=== PATIENT | male | born 1940 | race Caucasian/White ===

== ENCOUNTER 2016-04-29 16:44 | Inpatient (IN) | payer OTHER ==
[2016-04-29] MEDS ORDERED: VANCOMYCIN IV PER PHARMACY MISC SCH (17:45)
[2016-04-29] MEDS: PROTONIX IV SCH (18:07)
[2016-04-29] MEDS: SOLU-MEDROL IV SCH (18:07)
[2016-04-29] MEDS: LEVAQUIN 500 MG/D5W 100 ML IV SCH (18:07)
[2016-04-29] MEDS: SODIUM CHLORIDE 0.9% INJ SCH (18:07)
[2016-04-29] MEDS: LOVENOX SUBQ SCH (18:08)
[2016-04-29 18:15] LABS: ALLEN TEST YES; BE 2.4 mmoll (-3.0-3.0); BLOOD TYPE ARTERIAL; DRAW SITE R RADIAL; METHB 1.2 % (0.0-1.5); O2(CT) 15.2 mL/dL (15.0-23.0); PCO2(98.6) 38 mmHg (35-45); PO2(98.6) 77 mmHg (60-100); SAMPLE BLOOD; SAO2 97.3 % (95.0-100.0); THB 11.3 g/dL (11.5-17.4); pH(98.6) 7.45 (7.35-7.45)
[2016-04-29 18:31] LABS: MANUAL DIFF NEEDED? NO
[2016-04-29 18:39] LABS: BASO% 0.2 % (0.0-0.8); EOS# 0.17 X1000 (0.0-0.7); EOS% 2.1 % (0.0-10.0); HEMATOCRIT 37.4 % (42.0-52.0); HEMOGLOBIN 11.6 g/dL (14.0-18.0); IMM GRAN# 0.02 X1000 (0.0-0.04); IMM GRAN% 0.2 % (0.0-0.5); LYMPH# 2.15 X1000 (1.2-3.4); LYMPH% 26.3 % (20.5-51.1); MCH 26.2 PG (27-31); MCV 84.6 FL (81-99); MONO# 0.65 X1000 (0.11-0.59); MONO% 7.9 % (1.7-9.3); MPV 9.8 FL (7.4-10.4); NEUT% 63.3 % (42.2-75.2); PLT 269 X1000 (130-400); RBC 4.42 XMIL (4.7-6.1)
[2016-04-29 18:59] LABS: AGAP 10; ALBUMIN 3.5 g/dL (3.5-5.0); ALKALINE PHOSPHATASE 73 U/L (32-122); BUN 12 mg/dL (8-22); CALCIUM 9.4 mg/dL (8.8-10.2); CHLORIDE 102 mmol/L (98-107); COSMO 277; GOT 18 U/L (10-34); GPT 27 U/L (10-44); POTASSIUM 4.5 mmol/L (3.5-5.1); SODIUM 139 mmol/L (136-145); TCO2 27 mmol/L (25-35); TOTAL BILIRUBIN 0.32 mg/dL (0.20-1.00); TOTAL PROTEIN 6.5 g/dL (6.3-8.3)
[2016-04-29] MEDS: DUONEB (A & A) INH PRN (19:25)
[2016-04-29] MEDS ORDERED: VANCOMYCIN 2,400 MG in NS 500 ML IV SCH (20:00)
[2016-04-29] MEDS: PRINIVIL PO SCH (20:34)
[2016-04-29] MEDS: VANCOMYCIN 2,400 MG in NS 500 ML IV SCH (20:34)
[2016-04-29] MEDS: HUMULIN R SUBQ SCH (20:35)
--- NOTE | 2016-04-29 21:47 | HISTORY AND PHYSICAL ---
CHIEF COMPLAINT: Shortness of breath, cough, and wheezing for the last 1 week. HISTORY OF PRESENT ILLNESS: He is a 76-year-old pleasant white gentleman with history of pneumoconiosis with asbestosis, recently had a flu and returned to our clinic with the above symptoms. He was markedly wheezing. Chest x-ray consistent with pleural extensive plaquing associated with possible infiltrate in the right lower lobe. He has been hospitalized post flu, COPD exacerbation with possible pneumonia. Needs aggressive bronchodilators, IV antibiotics. As a result, a hospital admission was warranted. PAST MEDICAL HISTORY: CAD. Type 2 diabetes. Hyperlipidemia. Hypertension. Insomnia. Sleep apnea. Peripheral vascular disease. Asbestosis. PAST SURGICAL HISTORY: Cholecystectomy. Bypass surgery. Left femoral angioplasty and endarterectomy. MEDICATIONS: Albuterol, aspirin 325 daily, Flomax 0.4 daily, Prozac 40 daily, gabapentin 300 daily, glipizide 5 mg p.o. b.i.d., metformin 500 p.o. b.i.d., Mirapex 1.5 mg once daily, multivitamin 1 tablet daily, Pletal 100 p.o. b.i.d., Proventil as needed, Zocor 40 daily. ALLERGIES: Not known. SOCIAL HISTORY: , 2 kids. Retired from [employer]. Socially drinks alcohol. Quit smoking in 1988. Lives in [place]. FAMILY HISTORY: Father of MVA at 46. Mom at 86 from diabetic complications. HEALTH MAINTENANCE: Flu vaccine 2015, pneumococcal vaccine 2012. Last prostate February 2016. Colonoscopy 2012. REVIEW OF SYSTEMS: HEENT: No headache. No vision problem. No earache. No sore throat. Neck: No goiter. No lymphadenopathy. No bruits. Cardiopulmonary: No chest pain. Basically shortness of breath, cough, and wheezing. GI: No nausea, vomiting, abdominal pain. : No history of hesitancy, frequency. No swelling of feet. No joint pains. Skin: No skin rashes. Neurologic: No obvious focal symptoms or seizures. PHYSICAL EXAMINATION: VITAL SIGNS: Stable. 97% on room air. HEENT: Atraumatic, normocephalic. Pupils equal, reactive to light. TMs are normal. Nose and throat within normal limits. NECK: Supple. No lymphadenopathy. No goiter. CHEST: Bilateral air entry with expiratory wheezing. HEART: Distant heart sounds. ABDOMEN: Belly is soft, obese, nontender. Good bowel sounds. No peripheral edema, cyanosis, clubbing. No signs of gangrene. NEUROLOGIC: No focal deficits. INVESTIGATIONS: White cell count 8.1, hematocrit 37, platelets 269,000. ABG: PH is 7.45, pCO2 38, PO2 77. SMA7 is normal. LFTs were normal. Cardiac enzymes proBNP were normal. Chest x-ray, possible early infiltrate in the right lower lobe. EKG is pending. ASSESSMENT AND PLAN: 1. A 76-year-old white gentleman with a history of pneumoconiosis with asbestosis, admitted to the hospital with post flu bronchitis, not better. Plan is oxygen, intravenous steroids, intravenous antibiotics with vancomycin and Levaquin. 2. Deep venous thrombosis and gastrointestinal prophylaxis with Lovenox and Protonix respectively. 3. Bronchodilators with albuterol, Atrovent and Spiriva. We will also had a Breo. 4. Reconcile home medicines. 5. Type 2 diabetes. Watch with a sliding scale. 6. Coronary artery disease/peripheral vascular disease. Stable. Continue on secondary prevention. 7. Initiate standing vaccination protocol.
[2016-04-30] MEDS: SOLU-MEDROL IV SCH ×3 (00:58→17:28)
--- NOTE | 2016-04-30 05:28 | EKG Report ---
Test Performed on : 04/29/2016 6:02:10 PM Test Reason : chest pain Blood Pressure : / mmHG Vent. Rate : 080 BPM Atrial Rate : 080 BPM P-R Int : 168 ms QRS Dur : 090 ms QT Int : 404 ms P-R-T Axes : 051 056 074 degrees QTc Int : 465 ms Normal sinus rhythm. Nonspecific ST abnormality Abnormal ECG When compared with ECG of 26-APR-2013 09:57, Nonspecific T wave abnormality no longer evident in Inferior leads Nonspecific T wave abnormality no longer evident in Anterolateral leads Confirmed by Tiffanie ANNE, Julian Marie ([id number]) on 05/01/2016 9:27:26 AM
[2016-04-30] MEDS: HUMULIN R SUBQ SCH ×4 (06:26→21:57)
[2016-04-30 06:59] LABS: HEMOGLOBIN A1C 6.7 % (4.8-6.0)
[2016-04-30] MEDS: SPIRIVA INH SCH (07:53)
[2016-04-30] MEDS: BREO ELLIPTA 100/25 MCG INH INH SCH (07:55)
--- NOTE | 2016-04-30 09:34 | Diag Imaging Result Document ---
PROCEDURE NAME: CHEST-2 VIEWS - 04/30/2016 TWO VIEWS OF THE CHEST: FINDINGS: There is extensive calcific pleural plaque formation bilaterally. There are sternotomy wires. IMPRESSION: Calcified pleural plaques. No definite evidence of acute disease.
[2016-04-30] MEDS: PROZAC PO SCH (10:06)
[2016-04-30] MEDS: FLOMAX PO SCH (10:07)
[2016-04-30] MEDS: MIRAPEX PO SCH (10:07)
[2016-04-30] MEDS: THERA M PLUS PO SCH (10:07)
[2016-04-30] MEDS: PRINIVIL PO SCH ×2 (10:07→21:57)
[2016-04-30] MEDS: ASPIRIN EC PO SCH (10:08)
[2016-04-30] MEDS: GLUCOPHAGE PO SCH (10:08)
[2016-04-30] MEDS: ZOCOR PO SCH (10:08)
[2016-04-30] MEDS: VANCOMYCIN 2,400 MG in NS 500 ML IV SCH (13:34)
[2016-04-30] MEDS: PROTONIX IV SCH (17:25)
[2016-04-30] MEDS: SODIUM CHLORIDE 0.9% INJ SCH (17:25)
[2016-04-30] MEDS: LOVENOX SUBQ SCH (17:26)
[2016-04-30] MEDS: LEVAQUIN 500 MG/D5W 100 ML IV SCH (17:26)
[2016-05-01] MEDS: SOLU-MEDROL IV SCH ×3 (01:21→17:14)
[2016-05-01] MEDS: HUMULIN R SUBQ SCH ×4 (06:48→21:47)
[2016-05-01] MEDS: SPIRIVA INH SCH (07:30)
[2016-05-01] MEDS: BREO ELLIPTA 100/25 MCG INH INH SCH (07:30)
[2016-05-01] MEDS: VANCOMYCIN 2,400 MG in NS 500 ML IV SCH (08:58)
[2016-05-01] MEDS: FLOMAX PO SCH (09:00)
[2016-05-01] MEDS: PROZAC PO SCH (09:00)
[2016-05-01] MEDS: THERA M PLUS PO SCH (09:00)
[2016-05-01] MEDS: ZOCOR PO SCH (09:00)
[2016-05-01] MEDS: PRINIVIL PO SCH ×2 (09:00→21:47)
[2016-05-01] MEDS: ASPIRIN EC PO SCH (09:01)
[2016-05-01] MEDS: MIRAPEX PO SCH (09:01)
[2016-05-01] MEDS: GLUCOPHAGE PO SCH (09:01)
[2016-05-01] MEDS: TESSALON PO PRN ×2 (10:12→21:50)
[2016-05-01] MEDS: DUONEB (A & A) INH PRN ×3 (16:02→23:25)
[2016-05-01] MEDS: LOVENOX SUBQ SCH (17:13)
[2016-05-01] MEDS: PROTONIX IV SCH (17:16)
[2016-05-01] MEDS: SODIUM CHLORIDE 0.9% INJ SCH (17:16)
[2016-05-01] MEDS: LEVAQUIN 500 MG/D5W 100 ML IV SCH (17:19)
[2016-05-02] MEDS: SOLU-MEDROL IV SCH (03:21)
[2016-05-02] MEDS: VANCOMYCIN 2,400 MG in NS 500 ML IV SCH (03:21)
[2016-05-02] MEDS: HUMULIN R SUBQ SCH (06:35)
[2016-05-02 07:36] VITALS: BP 164/90
[2016-05-02] MEDS ORDERED: PREVNAR 13 IM ONE (08:13)
[2016-05-02] MEDS: MIRAPEX PO SCH (09:37)
[2016-05-02] MEDS: PROZAC PO SCH (09:37)
[2016-05-02] MEDS: FLOMAX PO SCH (09:37)
[2016-05-02] MEDS: ZOCOR PO SCH (09:37)
[2016-05-02] MEDS: THERA M PLUS PO SCH (09:37)
[2016-05-02] MEDS: GLUCOPHAGE PO SCH (09:37)
[2016-05-02] MEDS: PRINIVIL PO SCH (09:37)
[2016-05-02] MEDS: ASPIRIN EC PO SCH (09:37)
--- NOTE | 2016-05-04 17:01 | DISCHARGE SUMMARY ---
ADMISSION DATE: 04/29/2016 DISCHARGE DATE: 05/02/2016 DISCHARGING DIAGNOSIS: Acute chronic obstructive pulmonary disease exacerbation with pneumoconiosis of asbestosis. SECONDARY DIAGNOSES: 1. Coronary artery disease status post bypass surgery. 2. Peripheral vascular disease status post left femoral angioplasty and endarterectomy. 3. Type 2 diabetes. 4. Hyperlipidemia. 5. Hypertension. 6. Chronic insomnia. 7. Sleep apnea. 8. History of asbestosis exposure. BRIEF HISTORY: Please see the H and P that was done on 04/29/2016. In brief he is a 76-year-old white gentleman with the above medical problems, recently had influenza A infection, fails to improve, admitted to the hospital with shortness of breath, cough, wheezing, possible bronchopneumonia on the right side with underlying severe pneumoconiosis with asbestosis, pleural plaquing. He was started on IV vancomycin, Levaquin, oxygen, bronchodilators with Breo and Spiriva and steroids. Follow up chest x-ray is improved. Rest of the hospital course was uneventful. LABORATORY DATA: CBC. White cell count 8.1, hematocrit 37, platelets 269,000. ABG on room air pH is 7.45, pCO2 38, PO2 77. SMA 7. Sodium 139, potassium 4.8, chloride 102, CO2 27, BUN 12, creatinine 0.9. A1c 6.7. Liver function test normal. Cardiac enzymes are normal. ProBNP was normal. DISPOSITION: At the time of discharge, patient is stable. DISCHARGE INSTRUCTIONS: Pneumococcal vaccine 05/02/2016. Flomax 0.4 daily, multivitamin 1 tablet daily, Prozac 40 daily, metformin 500 daily, aspirin 325 daily, Zocor 40 mg daily, Prinivil 10 mg p.o. b.i.d., Mirapex 1.5 mg daily, Spiriva inhalation 1 tablet at bedtime, Breo 1 capsule inhalation in the morning, Medrol Dosepak as directed, Levaquin 500 daily for 10 days along with probiotics. Followup in my office next week. Continued to maintain the secondary prevention with existing CAD and peripheral vascular disease.
== END 2016-05-02 09:48 | disposition home or self-care (01) | DRG 192 ==
LOC: DIRADM 16:44 → 4N 16:51
PROVIDERS: ADMIT Internal Medicine; ATTEND Internal Medicine
DX: J44.1 Chronic obstructive pulmonary disease with (acute) exacerbation (principal); E11.51 Type 2 diabetes mellitus with diabetic peripheral angiopathy without gangrene; J92.0 Pleural plaque with presence of asbestos; I25.10 Atherosclerotic heart disease of native coronary artery without angina pectoris; I10 Essential (primary) hypertension; E78.5 Hyperlipidemia, unspecified; F51.04 Psychophysiologic insomnia; Z23 Encounter for immunization; Z79.899 Other long term (current) drug therapy; Z79.82 Long term (current) use of aspirin; Z79.84 Long term (current) use of oral hypoglycemic drugs; Z87.891 Personal history of nicotine dependence; Z95.1 Presence of aortocoronary bypass graft; Z83.3 Family history of diabetes mellitus
CPT/HCPCS: 71020; 80053; 80202; 82550; 82805; 82948; 83036; 83880; 84484; 85025; 90670; 93005; 93010; 94640; 94761; C9113; J1650; J2930; J3370; J7040; S0164

== ENCOUNTER 2018-05-05 08:47 | Inpatient (IN) ==
--- NOTE | 2018-05-05 09:50 | Diag Imaging Result Doc PS360 ---
CHEST-1 VIEW - 05/05/2018 INDICATION: sob COMPARISON: 04/29/2017 FINDINGS: Stable sternotomy changes. Heart size and pulmonary vascularity is normal. Stable extensive, dense bilateral calcified pleural plaques. No infiltrates or edema. No pneumothorax or large pleural effusion. IMPRESSION: No acute disease or change from prior. Electronically signed by Missael Childers 05/05/2018 9:48 AM
[2018-05-05 09:56] LABS: BASO# 0.02 X1000 (0.0-0.2); BASO% 0.1 % (0.0-0.8); EOS# 0.11 X1000 (0.0-0.7); EOS% 0.6 % (0.0-10.0); HEMATOCRIT 41.3 % (42.0-52.0); HEMOGLOBIN 12.9 g/dL (14.0-18.0); IMM GRAN# 0.04 X1000 (0.0-0.04); IMM GRAN% 0.2 % (0.0-0.5); LYMPH# 2.56 X1000 (1.2-3.4); LYMPH% 14.7 % (20.5-51.1); MCH 27.2 PG (27-31); MCHC 31.2 g/dL (33-37); MCV 86.9 FL (81-99); MONO# 1.17 X1000 (0.11-0.59); MONO% 6.7 % (1.7-9.3); NEUT# 13.57 X1000 (1.4-6.5); NEUT% 77.7 % (42.2-75.2); PLT 316 X1000 (130-400); RBC 4.75 XMIL (4.7-6.1); RDW 13.7 % (11.5-14.5); WBC 17.47 X1000 (4.8-10.8)
[2018-05-05] MEDS ORDERED: NS 1,000 ML IV ONE ×2 (10:03→14:45)
[2018-05-05 10:34] LABS: AGAP 13; BUN 21 mg/dL (8-22); CALCIUM 9.1 mg/dL (8.8-10.2); CHLORIDE 97 mmol/L (98-107); COSMO 281; CREATININE 0.9 mg/dL (0.7-1.2); ESTIMATED GFR > 60; GLUCOSE 278 mg/dL (70-104); POTASSIUM 4.5 mmol/L (3.5-5.1); SODIUM 134 mmol/L (136-145); TCO2 24 mmol/L (25-35)
[2018-05-05] MEDS ORDERED: PROTONIX IV ONE (10:39)
[2018-05-05] MEDS ORDERED: ZOFRAN IV ONE (10:39)
[2018-05-05] MEDS ORDERED: PEPCID IV ONE (10:39)
[2018-05-05] MEDS ORDERED: G.I. COCKTAIL PO ONE (10:39)
[2018-05-05] MEDS ORDERED: SODIUM CHLORIDE 0.9% INJ ONE ×2 (10:40)
[2018-05-05 11:04] LABS: URINE SOURCE CLEAN CATCH
[2018-05-05 11:08] LABS: BILIRUBIN URINE NEGATIVE (NEGATIVE); BLOOD URINE NEGATIVE (NEGATIVE); COLOR YELLOW; GLUCOSE URINE 1000 mg/dL (NEGATIVE); KETONE URINE TRACE mg/dL (NEGATIVE); LEUKOCYTES URINE NEGATIVE (NEGATIVE); NITRITE URINE NEGATIVE (NEGATIVE); PROTEIN URINE TRACE mg/dL (NEGATIVE); SP GRAVITY URINE 1.022; TURBIDITY URINE CLEAR (CLEAR); UR EPITHELIAL CELLS <10 /HPF (<10); URINE BACTERIA NEGATIVE /HPF; URINE RBC <10 /HPF (<10); URINE WBC <10 /HPF (<10); UROBILINOGEN URINE NORMAL (NORMAL)
--- NOTE | 2018-05-05 11:34 | EKG Report ---
Test Performed on : 05/05/2018 10:03:56 AM Test Reason : ED. NO EKG ORDER FOR MUSE Blood Pressure : / mmHG Vent. Rate : 096 BPM Atrial Rate : 096 BPM P-R Int : 168 ms QRS Dur : 090 ms QT Int : 362 ms P-R-T Axes : 036 023 051 degrees QTc Int : 457 ms Normal sinus rhythm. Nonspecific ST abnormality Abnormal ECG When compared with ECG of 07-APR-2017 04:00, No significant change was found Unconfirmed Result
--- NOTE | 2018-05-05 12:48 | Diag Imaging Result Doc PS360 ---
EXAM: CT ABD/PELVIS W/PO AND IV CON 05/05/2018 HISTORY: UPPER ABD PAIN AND TENDERNESS TECHNIQUE: This exam was performed using automated exposure control, adjustment of mA or kV according to patient size, and/or use of iterative reconstruction technique. COMMENT: There is marked bilateral calcific pleural plaquing. This was also present at the time the previous examination of 04/07/2018. It may be related to asbestos exposure. The spleen adrenal glands liver and pancreas are stable in appearance. There has been cholecystectomy. There is no evidence of nephrolithiasis on the right. There is a stone in the mid collecting system on the left measuring 5 mm in diameter. This was also present previously. There are multiple cortical cysts. There is no evidence of bowel obstruction. There is dense calcification of the aorta as well as portions of the celiac and superior mesenteric arteries. There is no evidence of abdominal aortic aneurysm. There is no significant adenopathy. Pelvis: There is marked diverticulosis of the sigmoid colon and distal descending colon without evidence of diverticulitis. The appendix is normal in appearance. There is no evidence of free fluid. The urinary bladder is unremarkable. There is no evidence of adenopathy. There is a bone island in the left femoral head. There are degenerative disc changes in the lumbar spine. IMPRESSION: 1. Calcific pleural plaquing. 2. Diverticulosis coli. Electronically signed by Maninder Hinson 05/05/2018 12:45 PM
--- NOTE | 2018-05-05 13:48 | PROVIDER DOCUMENTATION ---
This chart was entered by Esmer Matta Scribe, acting as scribe for Hawk Farfan MD. HPI-General Adult - General Chief Complaint: High Blood Sugar Stated Complaint: BS HIGH Time Seen by Provider: 05/05/18 10:02 Source: patient Allergies/Adverse Reactions: Patient Allergies Allergy/AdvReac Type Severity Reaction Status Date / Time No Known Allergies Allergy Verified 04/26/13 10:15 Home Medications: Home Medication List Medication Instructions Recorded Confirmed Last Taken Type Aspirin EC 325 mg PO DAILY 04/26/13 04/06/17 04/29/16 14:00 History Fluoxetine HCl 40 mg PO DAILY 04/26/13 04/06/17 04/29/16 14:00 History LISINOpril [Prinivil] 10 mg PO BID 04/26/13 04/06/17 04/29/16 14:00 History Metformin HCl 500 mg PO BID 04/26/13 04/06/17 04/29/16 14:00 History Multivitamin [Multivitamins] 1 each PO DAILY 04/26/13 04/06/17 04/29/16 14:00 History SIMVAstatin [Zocor] 40 mg PO DAILY 04/26/13 04/06/17 04/29/16 14:00 History Tamsulosin [Flomax] 0.4 mg PO DAILY 04/26/13 04/06/17 04/29/16 14:00 History Fluticasone/Vilant 100/25 INH 1 puff INH RTDAILY #3 inhaler 05/02/16 Unknown Rx [Breo Ellipta 100/25 Mcg INH] Tiotropium [place] Inhaler 1 puff INH RTDAILY #3 inhaler 05/02/16 Unknown Rx [Spiriva] Cilostazol 100 mg PO BID 04/06/17 04/06/17 Unknown History Gabapentin 300 mg PO BID 04/06/17 04/06/17 Unknown History Glipizide 5 mg PO BID 04/06/17 04/06/17 Unknown History Omeprazole 40 mg PO DAILY 04/06/17 04/06/17 Unknown History Pramipexole Di-HCl [Pramipexole 1.5 mg PO DAILY 04/06/17 04/06/17 Unknown History Dihydrochloride] Iron Carbonyl/Vit C/Vit B12/FA 1 ea PO DAILY #30 tab 04/10/17 Unknown Rx [Icar-C Plus] - History of Present Illness -Gen Adult Nature of Presenting Problems: 78 y/o male presents to ED with hyperglycemia and upper midline abdominal pain radiating to back onset 2 weeks ago. Pt reports his FSBS was >300 this morning. Pt states he was seen for same recently at [facility] and they increased his metformin. Pt reports he has also experienced dark diarrhea for the past 2 days. Pt is alert and oriented. Location of Pain/Injury: reports: abdomen Pain Radiation: reports: no radiation Quality of Pain: reports: aching Severity: reports: mild Onset/Duration: reports: other (2 weeks ago) Timing: reports: still present Context/Activities at Onset: reports: none Modifying Factors: worse with: palpation Associated Symptoms: reports: back/neck pain (back), diarrhea (dark), other (hyperglycemia; upper midline abdominal pain) Similar Symptoms Previously?: No Recently seen or treated by another doctor?: Yes ([facility] for same sx) - Diabetes Related Context Context: reports: high blood sugar Review of Systems - Adult - REVIEW OF SYSTEMS - ADULT Constitutional: reports: other (hyperglycemia). denies: chills, fever Eyes: reports: no symptoms reported Ears, Nose, Mouth & Throat: reports: no symptoms reported Cardiovascular: denies: chest pain, palpitations Respiratory: denies: cough, shortness of breath Gastrointestinal: reports: abdominal pain (upper midline), diarrhea (dark). denies: nausea, vomiting Genitourinary: reports: no symptoms reported Musculoskeletal: reports: back pain. denies: joint pain Integumentary: reports: no symptoms reported Neurological: denies: dizziness/vertigo, seizure Psychiatric: reports: no symptoms reported Endocrine: reports: other (hyperglycemia). denies: goiter Hematologic/Lymphatic: reports: no symptoms reported Allergic/Immunologic: reports: no symptoms reported All Other Systems: Reviewed and Negative Past History - Adult - PAST MEDICAL HISTORY-ADULT Review of Records: reports: Old Records Reviewed, Nursing Assessment Review, Medications Reviewed Major Childhood Illnesses: reports: denies history Cardiovascular: reports: CAD, HTN Respiratory: reports: denies history, COPD, other (asbestosis) Gastrointestinal: reports: denies history Genitourinary: reports: other (BPH) Musculoskeletal: reports: denies history, other (neuropathy) Neurological: reports: denies history, other (RLS) Psychiatric: reports: denies history Endocrine/Immune: reports: Diabetes - PRIOR SURGERIES/PROCEDURES Surgical/Procedure History: reports: cholecystectomy, other (cardiac bypass; L leg artery) - IMMUNIZATION STATUS Childhood Immunizations: See Nurse Assessment Flu Vaccine: See Nurse Assessment - FAMILY HISTORY Family History: reviewed, not pertinent - SOCIAL HISTORY Smoking: non-smoker Substance Use: none/never Alcohol Use Frequency: rarely Living Situation: family Physical Exam-General - PHYSICAL EXAM-ADULT Initial Vital Signs Reviewed: Yes - CONSTITUTIONAL General Appearance: appears well, alert, no apparent distress - EYES Eyes: PERRL/EOMI, pink conjunctivae - HEAD, EARS, NOSE, MOUTH & THROAT HENMT: normocephalic/atraumatic, moist mucous membranes, normal ENT inspection - NECK Neck: non-tender, full range of motion - RESPIRATORY Respiratory: chest non-tender, lungs clear, normal breath sounds - CARDIOVASCULAR Cardiovascular: normal peripheral pulses, regular rate, rhythm - GASTROINTESTINAL (ABDOMEN) Abdominal Exam: normal bowel sounds, soft, tenderness (upper midline), other ( rectus diastasis). negative: hernia, mass - GENITOURINARY Rectal Exam: normal exam, normal rectal tone Hemoccult Exam: heme negative stool - MUSCULOSKELETAL Back Exam: normal inspection, no CVA tenderness Extremity: normal range of motion, non-tender, normal gait - SKIN Integumentary: normal color, warm/dry - NEUROLOGIC Neurologic: grossly normal - PSYCHIATRIC Psych/Mental Status: normal mood/affect, normal thought content, normal thought process Progress - PLAN OF CARE/RESULTS Progress/Plan/Lab Results: Vital Signs - 8 hr 05/05/18 09:03 Temperature 97.6 F Pulse Rate 101 H Respiratory Rate 20 Blood Pressure 136/81 O2 Sat by Pulse Oximetry 95 Laboratory Results - last 24 hr 05/05/18 05/05/18 09:08 09:40 WBC 17.47 H RBC 4.75 Hgb 12.9 L Hct 41.3 L MCV 86.9 MCH 27.2 MCHC 31.2 L RDW Std Deviation 13.7 Plt Count 316 MPV 10.0 Immature Gran % (Auto) 0.2 Neut % (Auto) 77.7 H Lymph % (Auto) 14.7 L [place] % (Auto) 6.7 Eos % (Auto) 0.6 Baso % (Auto) 0.1 Immature Gran # (Auto) 0.04 Neut # (Auto) 13.57 H Lymph # (Auto) 2.56 [place] # (Auto) 1.17 H Eos # (Auto) 0.11 Baso # (Auto) 0.02 POC Glucose 309 H Orders Category Date Time Status Finger Stick Blood Sugar (ED) DIRECTED Care 05/05/18 10:03 Active CHEST-1 VIEW [RAD] Stat Exams 05/05/18 09:23 Completed CBC WITH DIFF [HEME] Stat Lab 05/05/18 09:40 Completed Chem7 [BASIC METABOLIC PANEL] [CHEM] Stat Lab 05/05/18 09:40 Received 0.9% Sodium Chloride Inj [Ns] 1,000 ml Med 05/05/18 10:03 Active IV 999 mls/hr Laboratory Tests 05/05/18 05/05/18 05/05/18 09:08 09:40 09:40 WBC 17.47 H RBC 4.75 Hgb 12.9 L Hct 41.3 L MCV 86.9 MCH 27.2 MCHC 31.2 L RDW Std Deviation 13.7 Plt Count 316 MPV 10.0 Immature Gran % (Auto) 0.2 Neut % (Auto) 77.7 H Lymph % (Auto) 14.7 L [place] % (Auto) 6.7 Eos % (Auto) 0.6 Baso % (Auto) 0.1 Immature Gran # (Auto) 0.04 Neut # (Auto) 13.57 H Lymph # (Auto) 2.56 [place] # (Auto) 1.17 H Eos # (Auto) 0.11 Baso # (Auto) 0.02 Sodium 134 L Potassium 4.5 Chloride 97 L Carbon Dioxide 24 L Anion Gap 13 BUN 21 Creatinine 0.9 Estimated GFR/1.73 m2 > 60 BUN/Creatinine Ratio 23 Glucose 278 H POC Glucose 309 H Calculated Osmolality 281 Calcium 9.1 Urine Source Urine Color Urine Turbidity Urine pH Ur Specific [place] Urine Protein Ur Glucose (Stick) Ur Ketones (Stick) Urine Blood Urine Nitrite Urine Bilirubin Urobilinogen Dipstick Urine Leukocytes Urine WBC (Auto) Urine RBC (Auto) U Epithel Cells (Auto) Urine Bacteria (Auto) 05/05/18 05/05/18 10:38 11:00 WBC RBC Hgb Hct MCV MCH MCHC RDW Std Deviation Plt Count MPV Immature Gran % (Auto) Neut % (Auto) Lymph % (Auto) [place] % (Auto) Eos % (Auto) Baso % (Auto) Immature Gran # (Auto) Neut # (Auto) Lymph # (Auto) [place] # (Auto) Eos # (Auto) Baso # (Auto) Sodium Potassium Chloride Carbon Dioxide Anion Gap BUN Creatinine Estimated GFR/1.73 m2 BUN/Creatinine Ratio Glucose POC Glucose 238 H Calculated Osmolality Calcium Urine Source CLEAN CATCH Urine Color YELLOW Urine Turbidity CLEAR Urine pH 6.0 Ur Specific [place] 1.022 Urine Protein TRACE A Ur Glucose (Stick) 1000 A Ur Ketones (Stick) TRACE A Urine Blood NEGATIVE Urine Nitrite NEGATIVE Urine Bilirubin NEGATIVE Urobilinogen Dipstick NORMAL Urine Leukocytes NEGATIVE Urine WBC (Auto) <10 Urine RBC (Auto) <10 U Epithel Cells (Auto) <10 Urine Bacteria (Auto) NEGATIVE Stool Occult Blood is negative. Influenza A and B are negative. Result Diagrams: 05/05/18 09:40 05/05/18 09:40 - REASSESSMENT Reassessment #1 Time Reassessed: 13:24 Status: improving (UPPER ABD PAIN IS MUCH BETTER, BUT, PT STILL FEELS VERY WEAK . PAGING DR BERMAN.) - EKG 1 Time of EKG reading by physician:: 10:03 EKG Read and Signed by:: Hawk Farfan EKG Interpretation (*Must complete 3 of following elements*): Abnormal Rate: 96 Rhythm: NSR [place]: normal QRS: normal OR Interval: normal ST Wave: non-specific ST changes - XRAY 1 XRAY Study: Chest Impression: Normal (FINDINGS: Stable sternotomy changes. Heart size and pulmonary vascularity is normal. Stable extensive, dense bilateral calcified pleural plaques. No infiltrates or edema. No pneumothorax or large pleural effusion. IMPRESSION: No acute disease or change from prior. Electronically signed by Missael Childers 05/05/2018 9:48 AM) - CT/MRI 1 CT Study: Abdomen, Pelvis Impression: Abnormal (COMMENT: There is marked bilateral calcific pleural plaquing. This was also present at the time the previous examination of 04/07/2018. It may be related to asbestos exposure. The spleen adrenal glands liver and pancreas are stable in appearance. There has been cholecystectomy. There is no evidence of nephrolithiasis on the right. There is a stone in the mid collecting system on the left measuring 5 mm in diameter. This was also present previously. There are multiple cortical cysts. There is no evidence of bowel obstruction. There is dense calcification of the aorta as well as portions of the celiac and superior mesenteric arteries. There is no evidence of abdominal aortic aneurysm. There is no significant adenopathy. Pelvis: There is marked diverticulosis of the sigmoid colon and distal descending colon without evidence of diverticulitis. The appendix is normal in appearance. There is no evidence of free fluid. The urinary bladder is unremarkable. There is no evidence of adenopathy. There is a bone island in the left femoral head. There are degenerative disc changes in the lumbar spine. IMPRESSION: 1. Calcific pleural plaquing. 2. Diverticulosis coli. Electronically signed by Maninder bee 05/05/2018 12:45 PM) - CONSULTS/PCP/HOSPITALIST Notification #1 *Consult/PCP/Hospitalist*: EUFEMIA Sharma for Dr. Hatch Time Discussed: 11:21 Reason/Comments: suspected GI bleed Consult Disposition: Admit (will see on floor if admitted) #2 Consult: DR Viraj BERMAN Time Discussed: 13:46 Consult Disposition: Admit Departure - Departure Date of Disposition Decision: 05/05/18 Time of Disposition Decision: 13:46 DIAGNOSIS: Epigastric abdominal pain, Peptic ulcer disease, Chest pain, Leukocytosis, Weakness Disposition: ADMITTED INPATIENT 09 Certified Medical Emergency: Emergent Condition: Stable Referrals and Follow-Ups: Viraj Berman MD [Primary Care Provider] - - Critical Care Note This patient required my direct & personal management of CC.: No Attestation - Physician/ BEAN Attestation Patient care was provided by Advanced Practice Provider:: No The physician spent face to face time with patient:: Yes Advanced Practice Provider documentation review:: Supervising physician onsite and consulted in the evaluation and care of this patient. The physician did have a face to face encounter with the patient. This chart was documented by the indicated scribe, (Esmer Matta Scribe) and accurately reflects the services I performed and decisions made by me, Hawk Farfan MD, as attested by the provider's signature.
[2018-05-05] MEDS: PROTONIX 80 MG in NS 80 ML IV SCH (16:46)
--- NOTE | 2018-05-05 22:18 | HISTORY AND PHYSICAL ---
CHIEF COMPLAINT: Severe abdominal pain off and on for the last 2 times in 1 month. HISTORY OF PRESENT ILLNESS: He is a 78-year-old white male with known history of peripheral vascular disease, and basically presented with recurrent upper abdominal pain. Not associated with meals. He denies any bleeding per stool. He has had gallbladder taken out. Basically rule out peptic ulcer disease versus mesenteric ischemia. No blood in the stool. The patient was seen twice for the same reason. The patient was admitted to the hospital for further evaluation. Exam was benign. Workup was essentially stable in the emergency room. Basically follow up, and also initiate GI consult. PAST MEDICAL HISTORY: Coronary artery disease; type 2 diabetes; hyperlipidemia; hypertension; sleep apnea; asbestosis of lungs; peripheral vascular disease; left leg claudication, status post angioplasty in 2013. PAST SURGICAL HISTORY: Cholecystectomy, bypass surgery, left femoral angioplasty. MEDICATIONS: Ambien 10 mg daily; aspirin 325 daily; budesonide inhalation b.i.d.; Flomax 0.4 daily; fluoxetine 40 daily; gabapentin 300 p.o. b.i.d.; glipizide 5 mg p.o. b.i.d.; lisinopril 10 mg twice daily; metformin 500 p.o. b.i.d.; Mirapex 1.5 daily; Proventil as needed; Zocor 40 daily. ALLERGIES: Not known. SOCIAL HISTORY: , 2 children. Retired from [employer]. . Smoking until 1988. Occasionally drinks alcohol. Lives in [place]. FAMILY HISTORY: Father at the age of 46 from MVA. Mother of diabetic complications at 86. HEALTH MAINTENANCE: Flu vaccine 11/2017, pneumococcal 04/2016. Last physical exam 03/25/2018. Colonoscopy 03/[address] Baca with tubular adenoma. Carotid Doppler 09/26/2016. REVIEW OF SYSTEMS: HEENT: No headache, no vision problem. No earache. No sore throat. Neck: No goiter. No lymphadenopathy. bruits noted last carotid Doppler 01/19/2018. Cardiopulmonary: No chest pain, shortness of breath, PND or orthopnea. Gastrointestinal: Upper abdominal pain, severe, localized. Not associated with any meals. No altered bowel habits. No bleeding per rectum. Occasional diarrhea. Genitourinary: No history of hesitancy, frequency or dysuria. Musculoskeletal: No claudication symptoms. Psychiatric: Chronic insomnia. Neurologic: No neurological symptoms like dizziness, vertigo or seizures. PHYSICAL EXAMINATION: VITAL SIGNS: Temperature is 97 degrees, pulse is 95, blood pressure is stable. GENERAL: Six feet 2 inches, 265 pounds. HEENT: Atraumatic, normocephalic. Pupils equal and reactive to light. TMs are normal. Nose and throat within normal limits. NECK: Supple. No lymphadenopathy. Bilateral carotid bruits. CHEST: Bilateral air entry. No wheezing. HEART: Sounds are regular. ABDOMEN: Belly is soft, obese, nontender. Good bowel sounds. No signs of peritonitis. RECTAL: Deferred. EXTREMITIES: Decreased pulses in both feet. No signs of gangrene. NEUROLOGIC: No deficits. LABORATORY DATA: White cell count 17, hematocrit 41, platelets 316,000. SMA 7: Sodium 134, potassium 4.5, chloride 97, BUN 21, creatinine 0.9, glucose 278. Cardiac enzymes are normal. Urinalysis is clear. DIAGNOSTIC DATA: CT scan of the abdomen and pelvis: Calcified pleural plaquing; diverticulosis coli; there is a stone in the left kidney 5 mm in diameter; multiple cysts; there is a dense calcification of the aorta as well as celiac and superior mesenteric arteries; no evidence of abdominal aortic aneurysm; diverticulosis of sigmoid colon; there is a bone island in the femoral head; degenerative changes in the lumbar spine. EKG: Normal sinus. Nothing acute. ASSESSMENT AND PLAN: 1. A 78-year-old white gentleman admitted to the hospital with recurrent epigastric pain, etiology to be determined. Rule out peptic ulcer disease. Continue intravenous Protonix. Esophagogastroduodenoscopy, consider. 2. Status post cholecystectomy. 3. Rule out mesenteric ischemia. We will get CT abdominal angiography. Consult with Dr. Phuong haq. 4. Asbestosis of the lungs, stable. 5. Bilateral carotid disease, 40% to 60%. Continue aspirin. 6. Peripheral arterial disease, status post left femoral angioplasty and atherectomy by Dr. Garcia. 7. Benign prostatic hypertrophy, on Flomax. 8. Depression, on Prozac 40 daily. 9. Hypertension, on lisinopril 10 daily. 10. Type 2 diabetes. Metformin 500 p.o. b.i.d. 11. Restless legs syndrome. Mirapex 1.5 daily. 12. Chronic neuropathy. Neurontin 300 daily. 13. Sleep apnea, on oxygen at nighttime. We will follow up. cc: Rick Burris MD [facility] CENTERMeri
[2018-05-05] MEDS: ZOCOR PO SCH (23:45)
[2018-05-05] MEDS: PRINIVIL PO SCH (23:45)
[2018-05-05] MEDS: NEURONTIN PO SCH (23:45)
[2018-05-06] MEDS: PROTONIX 80 MG in NS 80 ML IV SCH ×3 (01:48→20:48)
[2018-05-06 05:12] LABS: HEMATOCRIT 43.7 % (42.0-52.0); HEMOGLOBIN 13.7 g/dL (14.0-18.0); MCHC 31.4 g/dL (33-37); MCV 86.2 FL (81-99); MPV 10.1 FL (7.4-10.4); RBC 5.07 XMIL (4.7-6.1); WBC 15.48 X1000 (4.8-10.8)
[2018-05-06 05:33] LABS: AGAP 12; ALB/GLOB RATIO 1.5; ALBUMIN 4.1 g/dL (3.5-5.0); ALKALINE PHOSPHATASE 111 U/L (32-122); AMYLASE 33 U/L (20-200); BUN 15 mg/dL (8-22); CALCIUM 9.2 mg/dL (8.8-10.2); CHLORIDE 99 mmol/L (98-107); COSMO 274; ESTIMATED GFR > 60; GLUCOSE 186 mg/dL (70-104); GOT 15 U/L (10-34); GPT 24 U/L (10-44); POTASSIUM 4.8 mmol/L (3.5-5.1); SODIUM 134 mmol/L (136-145); TCO2 23 mmol/L (25-35); TOTAL PROTEIN 6.8 g/dL (6.3-8.3)
[2018-05-06 05:51] LABS: ALLEN TEST YES; BLOOD TYPE ARTERIAL; HCO3-(ACT) 23.3 mmoll (20.0-26.0); METHB 0.8 % (0.0-1.5); O2(CT) 18.5 mL/dL (15.0-23.0); O2HB 96.5 % (95.0-99.0); PCO2(98.6) 36 mmHg (35-45); PO2(98.6) 125 mmHg (60-100); SAMPLE BLOOD; SAO2 98.5 % (95.0-100.0); THB 13.5 g/dL (11.5-17.4)
[2018-05-06 05:52] LABS: MODALITY CANNULA
[2018-05-06] MEDS: SPIRIVA INH SCH (07:58)
[2018-05-06] MEDS: PULMICORT FLEXHALER INH SCH ×3 (08:00→19:18)
[2018-05-06] MEDS ORDERED: GLUCOPHAGE PO SCH (09:00)
--- NOTE | 2018-05-06 10:02 | Diag Imaging Result Doc PS360 ---
CT ANGIOGRAM ABD/PELIVS W/CON - 05/06/2018 INDICATION: Abdominal pain TECHNIQUE: Axial CT images were obtained after administering intravenous contrast. Coronal MIP images were generated. COMPARISON: 05/05/2018 FINDINGS: There are dense pleural plaques bilaterally in the lung bases compatible with extensive old asbestos exposure. No infiltrates or masses. Heart size is normal with no pericardial effusion. There is severe vascular disease of the abdominal aorta without significant aneurysm. There is critical stenosis at the origin of the celiac and superior mesenteric arteries with over 90% stenosis. The renal artery origins are grossly patent. The inferior mesenteric artery origin is diseased but patent. There is severe to critical stenosis of the right common iliac artery with about 80% narrowing. There is moderate stenosis throughout the right external iliac artery with about 50% narrowing. There is critical stenosis of the right internal iliac artery with about 90% narrowing. There is critical stenosis of the right common iliac artery with 90% narrowing. There is moderate stenosis of the left common iliac artery with about 40% narrowing. The left external iliac artery is grossly patent. There is critical stenosis at the origin of the left internal iliac artery with about 90% stenosis. There is vascular disease of the left femoral vessels but no significant stenosis. 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 Critical stenosis of the pelvic and femoral arteries. This exam was performed using automated exposure control, adjustment of mA or kV according to patient size, and/or use of iterative reconstruction technique Electronically signed by Missael Childers 05/06/2018 10:00 AM
[2018-05-06] MEDS: MIRAPEX PO SCH (10:04)
[2018-05-06] MEDS: PRINIVIL PO SCH ×2 (10:05→20:48)
[2018-05-06] MEDS: NEURONTIN PO SCH ×2 (10:05→20:48)
[2018-05-06] MEDS: PROZAC PO SCH (10:05)
[2018-05-06] MEDS: FLOMAX PO SCH (10:06)
[2018-05-06] MEDS: ASPIRIN EC PO SCH (10:06)
[2018-05-06] MEDS: GLUCOTROL PO SCH ×2 (10:06→20:48)
[2018-05-06] MEDS: ZOFRAN IV PRN (11:08)
[2018-05-06] MEDS: HUMALOG SUBQ SCH ×3 (11:09→20:49)
[2018-05-06] MEDS ORDERED: MIRALAX PO SCH (11:15)
--- NOTE | 2018-05-06 11:44 | GASTROENTEROLOGY PROGRESS NOTE ---
DATE: 05/06/2018 DICTATING PHYSICIAN: Dr. Burris. REASON FOR CONSULTATION: Abdominal pain and dark stools. HISTORY: Mr. Mederos is a 78-year-old male, who was admitted on 05/05/2018 for epigastric pain along with dark stools. According to the patient, this has been happening for the last 1 month; it has gotten worse now, and he cannot even sit still in the bed. The patient is also passing dark stools. He denies any bright red blood in the stools. He has been on aspirin for years for coronary disease. He denies any nausea, vomiting, or vomiting blood. Gastroenterology is asked to follow for further management. PAST MEDICAL HISTORY: 1. Coronary artery disease. 2. Type 2 diabetes. 3. Hyperlipidemia. 4. Obesity. 5. Hypertension. 6. Sleep apnea. 7. Asbestos of the lungs. 8. Peripheral vascular disease. 9. Left leg claudication. PAST SURGICAL HISTORY: Status post angioplasty 2013, cholecystectomy, coronary artery bypass surgery, left femoral angioplasty. ALLERGIES: No known drug allergies. SOCIAL HISTORY: He is . He has 2 children. Retired from [employer]. He is a . He smoked until 1988. He occasionally drinks alcohol. Lives in [place]. FAMILY HISTORY: Father at age 46 from MVA; mother of diabetic complications at age 86. Denies any history of colon or stomach cancer in the family. MEDICATIONS IN THE HOSPITAL: Zocor, aspirin 325 every day, budesonide inhaler, Prozac, gabapentin, glipizide, lisinopril, metformin, Zofran, Pantoprazole, Protonix drip at 10 mL/hour, Flomax, tiotropium 1 puff inhaled daily, and he is currently on clear liquid diet. REVIEW OF SYSTEMS: Denies any current fevers, rigors, chills, chest pain, shortness of breath, dyspnea, anxiety, vomiting blood. Does complain of dark stools. Complained of abdominal pain in the epigastric region radiating to right and left upper quadrant. His last colonoscopy was done on 04/09/2017 by me, and we removed the polyp in the hepatic flexure, which is tubular. He had stool throughout the colon. He also had diverticulosis in the descending and sigmoid colon. His last EGD was done on 04/08/2017 which showed Schatzki ring, and gastritis and gastric biopsy during that time showed H pylori negative chronic inactive gastritis. He denies any neurologic complaints. Denies history of arthritis of other NSAIDs other than aspirin. PHYSICAL EXAMINATION: Vital Signs: Temperature 98.1, pulse of 96, respiratory rate of 18, blood pressure of 143/80, satting 97% on 2 L nasal cannula. Body weight of 265 pounds 3.2 ounces. BMI 34 kg/m2. General: He is obese, lying in bed in no acute distress. HEENT: Positive pallor, no icterus. Pupils equal, reactive to light. Neck: Supple. Abdomen: Protuberant, obese. Discomfort in the epigastrium region and in the left upper quadrant and in the right upper quadrant. No rebound or guarding. Extremities: No cyanosis, clubbing. Neuro: Alert, awake and oriented x3. LABS: Hemoglobin and hematocrit is 13.7 and 43.7, white count of 15.4, platelet count of 320, MCV of 86.2. A pH of 7.4, pCO2 of 36, PO2 125; this is on 28% FiO2. Lactate of 1.5. Sodium of 130, potassium 4.2, chloride 99, bicarbonate 23, anion gap 12. BUN of 15, creatinine 1, glucose of 186, calcium 9.2. Total bilirubin is 0.7, AST 15, ALT 24, alkaline phosphatase 111. Total protein 6.8, albumin of 4.1. Amylase of 33, lactate of 1.6. Urinalysis showing trace protein, trace glucose and trace ketones. The stool for occult blood was negative and flu screen was also negative for A and B. X-RAYS: CT of the abdomen and pelvis was showing critical stenosis at the origin of superior mesenteric artery and celiac artery, critical stenosis of the pelvic and femoral arteries consistent with reflux disease. IMPRESSION AND PLAN: 1. Epigastric pain. 2. Peripheral vascular disease. 3. Computed tomography angiography showing critical stenosis of the SMA which could explain some of his symptoms. 4. Normal lactate per arterial blood gas. 5. Leukocytosis. 6. History of colon polyps. 7. History of diverticulosis. 8. History of reflux disease. RECOMMENDATIONS: We will start him on Carafate 1 g every 6 hours. He will continue Protonix drip. We will start him on clear liquid diet. We will call General Surgery consult for critical stenosis SMA. We will do serial abdominal exams. We will schedule him for EGD tomorrow by Dr. Pizano. The risks, benefits, indications, and alternatives to the procedure were discussed with the patient and family and all questions answered. We will start him on bowel regimen with MiraLAX. Above plan discussed with the patient and the family at bedside. All questions were answered. Please call us with any further questions. cc: MD Rick Brooks MD
[2018-05-06] MEDS: CARAFATE LIQUID PO SCH ×3 (14:47→20:48)
[2018-05-06] MEDS: GLUCOPHAGE PO SCH (17:10)
--- NOTE | 2018-05-06 19:00 | GENERAL SURGERY CONSULTATION ---
DATE: 05/06/2018 REASON FOR CONSULTATION: Critical stenosis of the SMA. HISTORY OF PRESENT ILLNESS: This is a 78-year-old male who describes severe abdominal pain in his upper mid abdomen that radiates across both sides of the upper abdomen into his back in an intermittent fashion. He first had an episode 2 or 3 weeks ago that lasted about 2 days. It was constant at that time. He got some relief with [facility]. Notably, he denies worsening pain or triggering of pain after eating. He also denies nausea, vomiting, or weight loss. He denies blood in his stool. After that episode 2 weeks ago, the pain went away and he seemed to be fine until about 3 days ago when he had a recurrent episode of pain, and he has been admitted for further evaluation. The pain this admission has waxed and waned, and currently it is hurting him this evening, he says about a 7 to 8/10 in severity, which is near the max level he has experienced so far. Again, he says it is not worse after eating, and it is somewhat constant in nature this afternoon. PAST MEDICAL HISTORY: 1. Peripheral vascular disease. 2. Coronary artery disease. 3. Hyperlipidemia. 4. Hypertension. 5. Obstructive sleep apnea. 6. Asbestosis PAST SURGICAL HISTORY: 1. Laparoscopic cholecystectomy. 2. Coronary artery bypass surgery. 3. Left common femoral endarterectomy and patch angioplasty. 4. Left superficial femoral artery atherectomy. ALLERGIES: No known drug allergies. SOCIAL HISTORY: He smoked up until 1988. He occasionally drinks alcohol. He is retired. HOME MEDICATIONS: 1. Ambien. 2. Aspirin. 3. Budesonide. 4. Flomax. 5. Fluoxetine. 6. Gabapentin. 7. Glipizide. 8. Lisinopril. 9. Metformin. 10. Mirapex. 11. Proventil. 12. Zocor. FAMILY HISTORY: Notable for diabetes, otherwise unremarkable. REVIEW OF SYSTEMS: Ten systems were reviewed and negative except as noted above. PHYSICAL EXAMINATION: Vital Signs: Temperature 98 degrees, pulse 90, blood pressure 148/80, O2 saturation 99%. General: He is a well-developed, elderly male who looks his stated age, in no acute distress, but does look somewhat uncomfortable. HEENT: Normocephalic, atraumatic. Extraocular muscles intact. Pupils equal, round, and reactive to light. Sclerae anicteric. Moist mucous membranes. Hearing grossly normal. Neck: Supple. No thyromegaly. CV: Regular rate and rhythm. Respiratory: Bilateral breath sounds. No work of breathing. GI: Obese, soft, mild tenderness diffusely. No rebound or guarding. No organomegaly or mass. No hernias. He does have some mild epigastric diastasis. No rebound or guarding. Extremities: No clubbing, cyanosis, or edema. Skin: Warm and dry. No rash. Musculoskeletal: Moves all extremities equally and well. LABORATORY: White blood cell count 17,000 on admission and 15,000 now, hemoglobin 13.7, hematocrit 43.7, platelet count 320,000. ABG today normal. Electrolytes reviewed and unremarkable. IMAGING: A CT angiogram of the abdomen and pelvis shows critical stenosis of the origin of the superior mesenteric artery and celiac artery, with both over 90% stenosis. The inferior mesenteric artery is diseased, but patent. The renal arteries are grossly patent. The abdominal aorta has severe vascular disease, but no aneurysm. The left common iliac artery has about a 40% stenosis. The left external iliac artery is grossly patent. There is about a 90% critical stenosis at the origin of the left internal iliac artery, and there appears to be vascular disease in the left femoral vessels, but no significant stenosis. ASSESSMENT AND PLAN: A 78-year-old male with abdominal pain of unclear etiology. He does have imaging evidence of severe to critical stenosis of the superior mesenteric artery and celiac arteries. However, his history is not consistent with chronic mesenteric ischemia. We will follow up his planned esophagogastroduodenoscopy tomorrow. Colonoscopy may be necessary as well. There are no acute surgical plans at this time. cc: MD Rick Alonzo MD
[2018-05-06] MEDS: ZOCOR PO SCH (20:48)
--- NOTE | 2018-05-06 21:38 | PROGRESS NOTE ---
DATE: 05/06/2018 SUBJECTIVE: The patient doing better. Intermittent abdominal pain, acute for the last 2 episodes for the last few months. Currently stable. EXAM: Vital Signs: Temperature is 97, pulse 96. Blood pressure is 140/80. HEENT: Within normal limits. Neck: Supple. No lymphadenopathy. Chest: Bilateral air entry. Heart: Sounds are regular. Abdomen: Belly is soft, nontender. INVESTIGATIONS: CBC: White cell count 15, hematocrit 43, platelets 328. ABG: pH is 7.40, pCO2 of 36, pO2 of 125 on 28%. Lactate is normal. SMA-7 is normal. Glucose 211. CRP 21.2. Stool for occult blood negative. CT scan of the abdomen and pelvis: Calcified pleural plaquing, diverticulosis. Stone in the left kidney. ASSESSMENT AND PLAN: 1. Severe abdominal pain, epigastric area. Rule out peptic ulcer disease. Rule out mesenteric ischemia. Consult Dr. Bonilla. Possible EGD in the morning. Continue IV proton pump inhibitor. Also CT abdominal angiogram to rule out mesenteric ischemia. 2. Elevated white cell count. Continue to monitor. 3. Diabetes. Follow up on sliding scale with insulin coverage. 4. Kidney stone on the left side, stable. We will discuss with Dr. Bonilla. We will follow up. LEVEL OF DOCUMENTATION: 25 minutes. cc: Rick Burris MD
[2018-05-06] MEDS ORDERED: DILAUDID IV ONE (22:50)
[2018-05-07] MEDS: CARAFATE LIQUID PO SCH ×3 (03:10→19:47)
[2018-05-07] MEDS: HUMALOG SUBQ SCH ×4 (06:39→21:53)
[2018-05-07] MEDS: PROTONIX 80 MG in NS 80 ML IV SCH (07:17)
[2018-05-07] MEDS ORDERED: DIPRIVAN 1% ONE (07:42)
[2018-05-07] MEDS ORDERED: FENTANYL ONE (07:44)
[2018-05-07] MEDS: PULMICORT FLEXHALER INH SCH ×3 (09:05→21:24)
[2018-05-07] MEDS: SPIRIVA INH SCH (09:06)
[2018-05-07] MEDS: MIRAPEX PO SCH (09:12)
[2018-05-07] MEDS: GLUCOTROL PO SCH ×2 (09:12→21:51)
[2018-05-07] MEDS: FLOMAX PO SCH (09:12)
[2018-05-07] MEDS: GLUCOPHAGE PO SCH ×2 (09:12→16:02)
[2018-05-07] MEDS: PRINIVIL PO SCH ×2 (09:13→21:51)
[2018-05-07] MEDS: PROZAC PO SCH (09:13)
[2018-05-07] MEDS: NEURONTIN PO SCH ×2 (09:13→21:51)
[2018-05-07] MEDS: ASPIRIN EC PO SCH (09:13)
--- NOTE | 2018-05-07 09:41 | OPERATIVE NOTE ---
PROCEDURE DATE: 05/07/2018 EXAM: Upper GI endoscopy with biopsy. PROVIDER: Bimal Pizano MD. INDICATIONS: Epigastric pain, melena. MEDICATIONS: Monitored anesthesia care. DESCRIPTION OF PROCEDURE: Prior to procedure, a history and physical was performed. The patient's medications and allergies were reviewed. The patient's tolerance to previous anesthesia was also reviewed. The risks and benefits of the procedure and sedation options and risks were discussed with the patient. All questions were answered and informed consent was obtained. After reviewing the risks and benefits, the patient was deemed in satisfactory condition to undergo the procedure. The endoscope was passed under direct visualization. Throughout the procedure, the patient's blood pressure, pulse and oxygen saturation were monitored continuously. The endoscope was introduced through the mouth and advanced to the second part of the duodenum. The upper GI endoscopy was accomplished without difficulty. The patient tolerated the procedure well. COMPLICATIONS: No immediate complications. ESTIMATED BLOOD LOSS: Minimal. FINDINGS: The esophagus revealed a small hiatal hernia, otherwise normal. The stomach showed hypoperfusion of the gastric body and antrum suspicious for bowel ischemia. Random gastric biopsies were obtained from the antrum and body for pathology. Within the duodenum, the duodenal bulb was normal. Beyond the ampulla at approximately 70 cm from the incisors was a segment of severe duodenitis with pale mucosa and superficial ulceration with spontaneous bleeding noted. This was also suspicious for bowel ischemia. Severity was mild to moderate. Random biopsies were obtained in this area proximal. To 70 cm the duodenum appeared normal. Retroflexion in the stomach was only revealing for the hiatal hernia seen on entry. IMPRESSION: 1. Small hiatal hernia. 2. Abnormal gastric mucosa biopsied. 3. Moderate duodenitis with superficial ulceration in the second portion of duodenum, biopsied. RECOMMENDATIONS: Keep N.P.O. Continue IV proton pump inhibitor b.i.d. Continue Carafate q.i.d. Surgery is following. Appreciate recommendations. We will follow with you. cc: Rick Burris MD
[2018-05-07] MEDS: DILAUDID IV PRN ×3 (10:54→23:50)
--- NOTE | 2018-05-07 12:53 | GENERAL SURGERY PROGRESS NOTE ---
DATE: 05/07/2018 SUBJECTIVE: Mr. Mederos is a 78-year-old male with severe peripheral vascular disease. I know him from previous left femoral endarterectomy. He reports about a month history of abdominal pain. He was admitted on the . He was discovered to have significant mesenteric vascular disease with calcific plaque at the take-off of his SMA and celiac. He denies any weight loss as of now. He underwent endoscopy today which revealed some hypoperfusion to his stomach mucosa and in the duodenum as well. The duodenal bulb looked normal. This would be consistent with mesenteric vascular disease. His white count is improved to 15,000. His bicarbonate level is 23. His base deficit is -2. His lactate is 1.5. His potassium is 4.8. BUN and creatinine are okay. OBJECTIVE: On exam, he does have some abdominal discomfort. He has no peritoneal signs. He has a normal left femoral pulse, a diminished right femoral pulse. 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 His SMA actually may be occluded but it is difficult to tell based on his CT angiogram. PLAN: Selective mesenteric arteriography with stent placement. I have discussed this with him. The benefits and risks, the possible failure to accomplish our plan, the possibility of vessel injury or tearing of the vessel and bleeding. He understands all these risks. We will plan for Thursday, the . I will talk with his family when they become available. cc: MD Rick Mendiola MD
--- NOTE | 2018-05-07 18:11 | PROGRESS NOTE ---
DATE: 05/07/2018 SUBJECTIVE: The patient had pain last night requiring Dilaudid. EGD was done. Findings were nothing significant. Dr. Garcia consult appreciated. PHYSICAL EXAMINATION: Vital Signs: Temperature is 98 degrees, pulse 96, blood pressure is 134/70. HEENT: Within normal limits. Neck: Supple. Chest: Clear. Heart: Sounds are regular. Abdomen: Belly is soft and nontender. No signs of peritonitis. ASSESSMENT AND PLAN: 1. 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 2. Continue on aspirin, simvastatin. Diabetes is stable and continue present treatment for underlying problems. LEVEL OF DOCUMENTATION: 25 minutes. cc: Rick Burris MD
[2018-05-07] MEDS: PROTONIX IV SCH (21:51)
[2018-05-07] MEDS: ZOCOR PO SCH (21:51)
[2018-05-07] MEDS: SODIUM CHLORIDE 0.9% INJ SCH (21:51)
[2018-05-08] MEDS: CARAFATE LIQUID PO SCH ×4 (02:47→22:03)
[2018-05-08] MEDS: DILAUDID IV PRN ×5 (05:35→23:05)
[2018-05-08] MEDS: HUMALOG SUBQ SCH ×4 (06:32→22:08)
[2018-05-08] MEDS: PULMICORT FLEXHALER INH SCH ×3 (08:23→22:00)
[2018-05-08] MEDS: SPIRIVA INH SCH (08:23)
[2018-05-08] MEDS: GLUCOPHAGE PO SCH ×2 (10:04→18:48)
[2018-05-08] MEDS: NEURONTIN PO SCH ×2 (10:04→22:04)
[2018-05-08] MEDS: MIRAPEX PO SCH (10:05)
[2018-05-08] MEDS: GLUCOTROL PO SCH ×2 (10:06→22:04)
[2018-05-08] MEDS: PROZAC PO SCH (10:06)
[2018-05-08] MEDS: PRINIVIL PO SCH ×2 (10:06→22:04)
[2018-05-08] MEDS: FLOMAX PO SCH (10:06)
[2018-05-08] MEDS: ASPIRIN EC PO SCH (10:06)
[2018-05-08] MEDS: PROTONIX IV SCH ×2 (10:07→22:04)
[2018-05-08] MEDS: SODIUM CHLORIDE 0.9% INJ SCH ×2 (10:07→22:04)
--- NOTE | 2018-05-08 12:54 | PROGRESS NOTE ---
DATE: 05/08/2018 Mr. Mederos has intestinal angina and has been awaiting stent placement in the celiac artery. He has ischemic bowel. He is having a lot of pain. Abdomen is soft, nontender at present. He had diarrhea. He has not been having any stools today. Blood sugar was 188. We are stepping up on his pain medications. -7 cc: MD Rick Landrum MD
[2018-05-08] MEDS: ZOCOR PO SCH (22:04)
[2018-05-09] MEDS: CARAFATE LIQUID PO SCH ×4 (02:30→20:05)
[2018-05-09] MEDS: DILAUDID IV PRN ×5 (03:24→20:06)
[2018-05-09] MEDS: HUMALOG SUBQ SCH ×4 (06:19→20:06)
[2018-05-09] MEDS: ZOFRAN IV PRN ×4 (08:11→20:06)
[2018-05-09] MEDS: SODIUM CHLORIDE 0.9% INJ SCH ×2 (08:14→20:05)
[2018-05-09] MEDS: NEURONTIN PO SCH ×2 (08:14→20:05)
[2018-05-09] MEDS: MIRAPEX PO SCH (08:14)
[2018-05-09] MEDS: PROTONIX IV SCH ×2 (08:14→20:05)
[2018-05-09] MEDS: PRINIVIL PO SCH ×2 (08:15→20:05)
[2018-05-09] MEDS: FLOMAX PO SCH (08:15)
[2018-05-09] MEDS: PROZAC PO SCH (08:15)
[2018-05-09] MEDS: GLUCOTROL PO SCH ×2 (08:15→20:05)
[2018-05-09] MEDS: ASPIRIN EC PO SCH (08:15)
[2018-05-09] MEDS: GLUCOPHAGE PO SCH ×2 (08:15→16:08)
[2018-05-09] MEDS: SPIRIVA INH SCH (08:24)
[2018-05-09] MEDS: PULMICORT FLEXHALER INH SCH ×3 (08:25→21:45)
--- NOTE | 2018-05-09 12:19 | PROGRESS NOTE ---
DATE: 05/09/2018 SUBJECTIVE: Mrs. Mederos is still having some abdominal pain. However, this pain is better with increase in dose of his pain medication, which is hydromorphone or Dilaudid 2 mg IV every 4 hours now. Abdomen is soft. He still has constipation. He is waiting to get the stent placed in the celiac artery. cc: MD Rick Landrum MD MTDD
[2018-05-09] MEDS: ZOCOR PO SCH (20:05)
[2018-05-10] MEDS: ZOFRAN IV PRN ×2 (01:04→05:11)
[2018-05-10] MEDS: DILAUDID IV PRN ×2 (01:04→05:11)
[2018-05-10] MEDS: CARAFATE LIQUID PO SCH ×3 (01:09→14:50)
[2018-05-10] MEDS: HUMALOG SUBQ SCH ×3 (06:30→17:34)
[2018-05-10] MEDS: SPIRIVA INH SCH (08:12)
[2018-05-10] MEDS: PULMICORT FLEXHALER INH SCH ×3 (08:12→20:02)
[2018-05-10 08:37] LABS: BASO# 0.03 X1000 (0.0-0.2); BASO% 0.1 % (0.0-0.8); HEMATOCRIT 42.7 % (42.0-52.0); HEMOGLOBIN 13.2 g/dL (14.0-18.0); IMM GRAN# 0.24 X1000 (0.0-0.04); IMM GRAN% 0.9 % (0.0-0.5); LYMPH# 1.49 X1000 (1.2-3.4); LYMPH% 5.3 % (20.5-51.1); MCH 26.7 PG (27-31); MCHC 30.9 g/dL (33-37); MCV 86.4 FL (81-99); MONO# 2.75 X1000 (0.11-0.59); MONO% 9.9 % (1.7-9.3); MPV 10.2 FL (7.4-10.4); NEUT# 23.37 X1000 (1.4-6.5); NEUT% 83.8 % (42.2-75.2); PLT 393 X1000 (130-400); RBC 4.94 XMIL (4.7-6.1); RDW 14.3 % (11.5-14.5); WBC 27.88 X1000 (4.8-10.8)
[2018-05-10 09:08] LABS: CALCIUM 9.3 mg/dL (8.8-10.2); CREATININE 1.3 mg/dL (0.7-1.2); POTASSIUM 4.7 mmol/L (3.5-5.1)
[2018-05-10] MEDS: GLUCOPHAGE PO SCH (10:05)
[2018-05-10] MEDS: NEURONTIN PO SCH (10:06)
[2018-05-10] MEDS: GLUCOTROL PO SCH (10:06)
[2018-05-10] MEDS ORDERED: HEPARIN ONE ×2 (10:15)
[2018-05-10] MEDS ORDERED: SENSORCAINE-MPF 0.5%/EPI 1:200,000 ONE (10:15)
[2018-05-10] MEDS ORDERED: NS 2,000 ML ONE (10:15)
--- NOTE | 2018-05-10 10:32 | GASTROENTEROLOGY PROGRESS NOTE ---
DATE: 05/10/2018 SUBJECTIVE: Patient is resting in bed. His family present at bedside. The patient is n.p.o. He is scheduled for a selective angiography and stenting of the mesenteric artery and celiac artery possibly with Dr. Garcia today. He continues abdominal pain. He denies any nausea or vomiting. OBJECTIVE: Vital signs: Temperature 98.1, pulse rate of 89, respiratory rate of 15, blood pressure 112/45, saturating 92% on room air. Weight: Body weight of 262 pounds 3.2 ounces. BMI of 34 kg/m2. General: Elderly gentleman who is obese, lying in bed, in no acute distress. HEENT: No pallor. No icterus. Pupils equal, reactive to light. Neck: Supple. Abdomen: Discomfort in the pelvic region. No rebound or guarding. Extremities: No cyanosis, clubbing. Neurological: Alert, awake, oriented x3. DIAGNOSTIC STUDIES: Hemoglobin is 13.2, hematocrit 42.7, white count of 27.8, platelet count of 393,000. Sodium 132, potassium 4.7, chloride 95, bicarbonate 22, anion gap 17, BUN of 44, creatinine 1.3, glucose of 216, calcium 9.3, AST 15, ALT 24, alkaline phosphatase 111, total protein 6.2, albumin of 4.1. Lactate of 1.6. Amylase of 33. Stool occult blood was negative. IMPRESSION AND PLAN: 1. 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 He is on schedule for selective mesenteric angiography with possible stent placement by Dr. Garcia today. 2. Leukocytosis. Aware. Continue watch for now. This will be worked up by the primary team. This could be reactive secondary to small-bowel ischemia. 3. Small hiatal hernia. He will continue follow gastroesophageal reflux lifestyle changes. We will keep him on PPIs and Carafate prophylaxis. 4. Duodenitis with ulcerations secondary likely from mesenteric ischemia. As above. 5. Diabetes. On Humalog. He also continues on metformin and glipizide. The above plans were discussed with the patient and family at bedside, and all questions were answered. Please call us with any further questions. cc: MD Rick Brooks MD
[2018-05-10] MEDS ORDERED: XYLOCAINE-MPF 2% ONE ×2 (10:35→11:23)
[2018-05-10] MEDS ORDERED: DIPRIVAN 1% ONE (10:35)
[2018-05-10] MEDS ORDERED: EPHEDRINE ONE (10:43)
[2018-05-10] MEDS ORDERED: KEFZOL 1 GM/D5W 1 GM/50 ML IVPB ONE (11:12)
[2018-05-10] MEDS ORDERED: ZEMURON ONE ×3 (11:23→14:56)
[2018-05-10] MEDS ORDERED: QUELICIN (DOSE) ONE (11:23)
[2018-05-10] MEDS ORDERED: ZOFRAN ONE (11:23)
[2018-05-10] MEDS ORDERED: NEO-SYNEPHRINE ONE (11:58)
[2018-05-10] MEDS ORDERED: HEPARIN (DOSE) ONE ×2 (11:58→14:41)
[2018-05-10] MEDS ORDERED: SODIUM CHLORIDE 0.9% 20 ML ONE (11:58)
[2018-05-10] MEDS ORDERED: ALBUMIN 25% ONE (13:20)
[2018-05-10] MEDS ORDERED: FENTANYL ONE (13:47)
[2018-05-10] MEDS: KEFZOL ONE ×2 (13:50→14:40)
[2018-05-10 13:57] LABS: URINE SOURCE CATH
[2018-05-10 14:03] LABS: BILIRUBIN URINE SMALL (NEGATIVE); BLOOD URINE NEGATIVE (NEGATIVE); COLOR YELLOW; GLUCOSE URINE NEGATIVE (NEGATIVE); KETONE URINE TRACE mg/dL (NEGATIVE); LEUKOCYTES URINE NEGATIVE (NEGATIVE); NITRITE URINE NEGATIVE (NEGATIVE); PH URINE 5.5; PROTEIN URINE 50 mg/dL (NEGATIVE); SP GRAVITY URINE 1.021; TURBIDITY URINE CLEAR (CLEAR); UROBILINOGEN URINE 2 mg/dL (NORMAL)
[2018-05-10 14:06] LABS: UR EPITHELIAL CELLS <10 /HPF (<10); URINE BACTERIA NEGATIVE /HPF; URINE RBC <10 /HPF (<10); URINE WBC <10 /HPF (<10)
[2018-05-10 14:20] LABS: URINE CASTS NONE SEEN
[2018-05-10] MEDS ORDERED: MANNITOL 20% 500 ML IV ONE (14:30)
[2018-05-10] MEDS ORDERED: NITROGLYCERIN 50 MG/D5W 50 MG/250 ML IV.SOLN ONE (14:31)
[2018-05-10] MEDS: ASPIRIN EC PO SCH (14:47)
[2018-05-10] MEDS: FLOMAX PO SCH (14:48)
[2018-05-10] MEDS: MIRAPEX PO SCH (14:48)
[2018-05-10] MEDS: PRINIVIL PO SCH (14:48)
[2018-05-10] MEDS: PROTONIX IV SCH ×2 (14:49→20:01)
[2018-05-10] MEDS: PROZAC PO SCH (14:49)
[2018-05-10] MEDS: SODIUM CHLORIDE 0.9% INJ SCH ×2 (14:50→20:01)
[2018-05-10] MEDS ORDERED: NORCURON ONE (15:08)
[2018-05-10] MEDS ORDERED: NS 1,000 ML IV SCH ×2 (15:30→16:41)
[2018-05-10] MEDS ORDERED: KEFZOL ONE (15:51)
[2018-05-10] MEDS ORDERED: DILAUDID IV PRN (16:42)
[2018-05-10] MEDS ORDERED: NS 500 ML ONE (16:54)
[2018-05-10] MEDS: KEFZOL 1 GM in NS 50 ML IV SCH (17:28)
[2018-05-10 17:33] LABS: HEMOGLOBIN 12.4 g/dL (14.0-18.0)
[2018-05-10 17:38] LABS: ALLEN TEST NO; BE -9.1 mmoll (-3.0-3.0); BLOOD TYPE ARTERIAL; HCO3-(ACT) 17.8 mmoll (20.0-26.0); METHB 0.6 % (0.0-1.5); O2(CT) 15.5 mL/dL (15.0-23.0); O2HB 95.7 % (95.0-99.0); PCO2(98.6) 36 mmHg (35-45); PO2(98.6) 98 mmHg (60-100); SAMPLE BLOOD; SAO2 97.7 % (95.0-100.0); SRATE 15 BPM; THB 11.4 g/dL (11.5-17.4); TVOL 800 mL; pH(98.6) 7.28 (7.35-7.45)
[2018-05-10 17:40] LABS: MODALITY VENTILATOR
--- NOTE | 2018-05-10 18:09 | OPERATIVE NOTE ---
PROCEDURE DATE: 05/10/2018 PROCEDURE PERFORMED: 1. Left femoral artery access with ultrasound guidance. 2. Aortogram. 3. Attempted selective mesenteric arteriogram. 4. Open aorta celiac (hepatic artery) to SMA bypass. SURGEON: Hawk Garcia MD PROJECT SAFETY MANAGER: 1. Dr. Torres, who assisted in exposure and anastomoses. 2. Torrey Morales RN, who also assisted in exposure, the anastomoses and closure. FINDINGS: The SMA and celiac were both occluded, and I could not cannulate the him selectively. Because of his progressive leukocytosis and continuous abdominal pain, I felt it was necessary to proceed with open bypass. I discussed that with his family including both sons, and they agree for me to proceed. DESCRIPTION OF PROCEDURE: Satisfactory general endotracheal anesthesia was achieved. The abdomen and groins were prepped and draped in a sterile fashion. We ultrasounded the left groin, identified the artery, accessed the artery, and passed a wire and a 6-Lithuanian sheath. This was a Seldinger approach. We then passed a Glidewire up the left iliac into the aorta. 5000 units of heparin were given. We then proceeded to take a Contra-2 catheter up into the aorta and attempted to blindly select the mesenteric vessels and failed to do so. So, we switched to a pigtail catheter and shot an aortogram. This showed a little faint flow in the celiac but no obvious opening from the aorta to the celiac, and the SMA was also occluded. We again chose what we thought were the dimples to the arteries and attempted to select them under magnification with II being transverse, but we could not select either vessel. Switched to an 0.018 wire, again could not traverse the occlusions both at the celiac and the SMA. It became evident then that we would have to resort to bypass. Because of the patient's continual abdominal pain and elevating white count in the 26,000 range, I felt it necessary to proceed with an operative intervention. I left the room and spoke to his son who was present, that is Bg, and I talked to Terrell, his brother, over the phone. After their discussion between themselves, they agreed to proceed with the open bypass. So, I came back. Again we scrubbed in. We placed an Ioban drape on the wound. We gave the patient an additional gram of Kefzol and I made a chevron incision. We carried it through the anterior rectus sheath on both sides, the rectus muscle on both sides, the posterior rectus sheath to provide adequate exposure. We did place an upper hand retractor. We sewed the abdominal wall flap inferiorly with 0 silk. We placed our upper hand retractor with the upper hand in the mid aspect and we took down the left lobe of the liver and folded it in and retracted it with our upper hand retractor as well. We then used electrocautery to incise the fascia and peritoneum over the esophagus. We were able to isolate the esophagus and pass a [place] drain around it. We then moved to the right of the esophagus inside the dank and then dissected down to the aorta. There was diaphragm and muscle over the aorta, and we it until we exposed the aorta. We were able to dissect around it and pass an umbilical tape. We exposed enough of the aorta that we felt that we could get clamps on it proximally and distally or a Satinsky clamp in order to do our proximal anastomosis above the celiac. We then identified the hepatic artery right where the gastroduodenal took off and surrounded it with small vessel loops proximally and distally as well as on the gastroduodenal. An additional 5000 units of heparin were given. After it had circulated for more than 3 minutes, we clamped the aorta proximally and distally with vertical DeBakey clamps. We then incised the aorta and extended with the Wright scissors. We obtained an 8 mm Hemashield collagen impregnated graft and constructed the proximal anastomosis using a 3-0 Prolene stitch. Upon completion of that, we allowed flow in the nondalton aorta and clamped off the graft with a Satinsky clamp to allow nondalton flow in the aorta. We then brought the graft up to the hepatic artery and we occluded flow in the hepatic artery with a clamp proximally and distally, and then used a vessel loop on the gastroduodenal. We then opened that artery with an 11 blade and extended with the Wright scissors. We constructed this anastomosis with a 4-0 Prolene stitch. Just prior to finishing it, we passed dilators in the hepatic artery and had back bleeding. We then flushed the graft from the aorta and had good antegrade flow. We then finished that anastomosis and flow was established. It was obvious there was flow in the hepatic artery as it was full and a pulse was noted. We turned our attention to the SMA. We dissected out the SMA in the root of the mesentery near the ligament of Treitz. When we found it, it was very hard but on the right side of the artery there felt to be a softer area. So after we isolated it and passed a vessel loop around it, I decided to go ahead and use a 6 Hemashield graft to go from the 8 graft down to the SMA. So, I made a hole in the mesentery of the colon and brought it up to where the hepatic artery was. We first dealt with the SMA and after isolating it away and clamping it off proximally and distally, we then incised it. There was a little bit of clot noted within it that we removed. We then constructed the anastomosis with a 4-0 Prolene stitch. We did not tie it but left it untied so that we could flush it after doing the more proximal anastomosis. After we had almost completely finished the SMA anastomosis, we went back up to where the hepatic artery anastomosis was and chose a spot just proximal to that anastomosis to make our 8 mm graft to 6 mm graft anastomosis. We occluded flow in the 8 mm graft, made a graftotomy and then constructed this anastomosis with a 4-0 Prolene stitch. Upon finishing it, we flushed the graft. No clot was identified. We had flow out at the SMA anastomosis, so we then tied it as well. Hemostasis was satisfactory. The bowel, even though it was somewhat blue and ischemic, started to show some improvement upon completion of the anastomosis. We felt that we had done what we could do. We irrigated out with Kefzol-impregnated saline over the graft. I placed some 3-0 Polysorb simple stitches to approximate fat over the graft in the right upper quadrant so that the bowel, the stomach or duodenal would not be touching it. We cut the 0 silk stitch that was holding the abdominal wall inferiorly. We then folded it up and closed the posterior rectus sheath with 0 Prolene starting of both ends and coming toward the middle. We then used a #1 PDS to close the anterior rectus sheath coming from both ends toward the middle. We then closed the skin with rosy. Sterile dressings were applied. He tolerated the procedure satisfactorily and was sent to the recovery room in satisfactory condition. cc: MD Rick Mendiola MD MTDD
[2018-05-10] MEDS: DIPRIVAN 1% 1,000 MG/100 ML BOTTLE IV SCH ×2 (18:56→22:25)
[2018-05-10] MEDS: NS 1,000 ML IV SCH (18:59)
--- NOTE | 2018-05-10 19:15 | Diag Imaging Result Doc PS360 ---
EXAM: KUB ABDOMEN INDICATION: missing needle walker TECHNIQUE: 2 views COMPARISON: None. FINDINGS: There are unremarkable bowel gas and stool patterns. There is no obstructive bowel pattern. There is no evidence of large volume free abdominal gas. No radiopaque foreign body is identified projecting of the abdomen or pelvis aside from cholecystectomy clips and postsurgical skin rosy. There is an NG tube that projects below the diaphragm and is assumed to be in the lumen of the stomach in the expected position. IMPRESSION: No unexpected retained radiopaque foreign body identified projecting over the abdomen or pelvis. Electronically signed by Elmer Chambers 05/10/2018 7:12 PM
[2018-05-10] MEDS: MORPHINE IV PRN (19:52)
[2018-05-10] MEDS: PERIDEX MT SCH (20:01)
[2018-05-10] MEDS: HUMULIN R SUBQ SCH (20:01)
--- NOTE | 2018-05-10 22:26 | PROGRESS NOTE ---
DATE: 05/10/2018 This is a level 3 documentation. Patient was seen twice in the morning before surgery and after surgery. Appreciate Dr. Garcia's input, and the patient last night was confused, and there was no fall. He was in a lot of pain. He had a third episode of pain last night, and he had significant mesenteric occlusive disease. The patient is initially going for stenting placement. Dr. Garcia gave all the intraoperative report, unable to stent it, and the patient had opened up and did the open aorta celiac to SMA bypass. The patient was admitted in the ICU. REVIEW OF SYSTEMS: Very slowly coming out. PHYSICAL EXAMINATION: Vital signs: Tachycardic. Vitals are stable. He is intubated on the ventilator support. Chest: Bilateral air entry. Cardiovascular: Distant heart sounds. Abdomen: Belly is soft. Abdominal scar present. Genitourinary: Bhardwaj was placed. LABORATORIES: CBC: White cell count 27, hematocrit 41, platelets 393. ABG: pH is 7.28, pCO2 36, pO2 98. He is on assist control. FiO2 60%. Rate of 15, tidal volume 800s, PEEP of 5. SMA 7: Sodium 134, potassium 4.7, BUN 44, creatinine 5.3. Urinalysis is clear. ASSESSMENT AND PLAN: 1. 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 2. Sedation: We will give him morphine and Diprivan. 3. Check the blood gas this morning. 4. Hemodynamics. Support with IV fluids 150 an hour. 5. Perioperative antibiotics with Keflex. 6. Diabetes on sliding scale with insulin coverage. 7. Deep venous thrombosis prophylaxis with Lovenox. 8. Gastrointestinal prophylaxis with IV Protonix. Apparently, Dr. Garcia did discuss with all the sons. I also talked to one of the sons this morning. Continue to see the progress. Appreciated Dr. Garcia's efforts and also discussing with family members about his condition. We will closely monitor, and we will repeat the labs in the morning. LEVEL OF DOCUMENTATION: 35 minutes. cc: Rick Burris MD
[2018-05-11] MEDS: KEFZOL 1 GM in NS 50 ML IV SCH ×2 (00:16→08:41)
[2018-05-11] MEDS: DIPRIVAN 1% 1,000 MG/100 ML BOTTLE IV SCH ×3 (02:57→11:29)
[2018-05-11 04:24] LABS: ALLEN TEST YES; BE -10.3 mmoll (-3.0-3.0); BLOOD TYPE ARTERIAL; HCO3-(ACT) 16.9 mmoll (20.0-26.0); METHB 0.5 % (0.0-1.5); O2(CT) 15.8 mL/dL (15.0-23.0); O2HB 96.9 % (95.0-99.0); PCO2(98.6) 26 mmHg (35-45); PO2(98.6) 113 mmHg (60-100); SAMPLE BLOOD; SAO2 98.4 % (95.0-100.0); SRATE 15 BPM; THB 11.5 g/dL (11.5-17.4); TVOL 800 mL; pH(98.6) 7.34 (7.35-7.45)
[2018-05-11 04:26] LABS: MODALITY VENTILATOR
[2018-05-11] MEDS ORDERED: ALBUMIN 25% IV ONE ×2 (05:26→08:26)
[2018-05-11 05:32] LABS: BASO# 0.01 X1000 (0.0-0.2); BASO% 0.1 % (0.0-0.8); EOS# 0.03 X1000 (0.0-0.7); EOS% 0.3 % (0.0-10.0); HEMATOCRIT 17.4 % (42.0-52.0); IMM GRAN# 0.09 X1000 (0.0-0.04); IMM GRAN% 0.8 % (0.0-0.5); LYMPH# 0.79 X1000 (1.2-3.4); LYMPH% 6.6 % (20.5-51.1); MCH 27.1 PG (27-31); MCHC 29.9 g/dL (33-37); MCV 90.6 FL (81-99); MONO# 1.44 X1000 (0.11-0.59); MPV 10.8 FL (7.4-10.4); NEUT# 9.61 X1000 (1.4-6.5); NEUT% 80.2 % (42.2-75.2); PLT 156 X1000 (130-400); RBC 1.92 XMIL (4.7-6.1); RDW 14.4 % (11.5-14.5); WBC 11.97 X1000 (4.8-10.8)
[2018-05-11] MEDS: NS 1,000 ML IV SCH ×2 (05:41→11:29)
[2018-05-11 05:46] LABS: HEMOGLOBIN 5.2 g/dL (14.0-18.0)
[2018-05-11] MEDS: HUMULIN R SUBQ SCH ×4 (06:18→20:51)
[2018-05-11 06:43] LABS: HEMATOCRIT 33.8 % (42.0-52.0); HEMOGLOBIN 10.5 g/dL (14.0-18.0)
[2018-05-11 07:03] LABS: BASO# 0.09 X1000 (0.0-0.2); BASO% 0.4 % (0.0-0.8); EOS# 0.01 X1000 (0.0-0.7); HEMATOCRIT 35.2 % (42.0-52.0); HEMOGLOBIN 10.8 g/dL (14.0-18.0); IMM GRAN# 0.24 X1000 (0.0-0.04); IMM GRAN% 1.1 % (0.0-0.5); LYMPH# 1.68 X1000 (1.2-3.4); LYMPH% 7.6 % (20.5-51.1); MCH 27.9 PG (27-31); MCHC 30.7 g/dL (33-37); MONO# 2.56 X1000 (0.11-0.59); MONO% 11.7 % (1.7-9.3); MPV 11.7 FL (7.4-10.4); NEUT# 17.39 X1000 (1.4-6.5); NEUT% 79.2 % (42.2-75.2); PLT 149 X1000 (130-400); RBC 3.87 XMIL (4.7-6.1); RDW 14.9 % (11.5-14.5); WBC 21.97 X1000 (4.8-10.8)
[2018-05-11] MEDS: SPIRIVA INH SCH (07:26)
[2018-05-11] MEDS: PULMICORT FLEXHALER INH SCH ×2 (07:26→15:36)
[2018-05-11 07:44] LABS: BANDS 8 % (0-1); LYMPHS 26 % (21-51); MONO 4 % (1-9); SEGS 62 % (42-75)
[2018-05-11 07:50] LABS: CALCIUM 8.3 mg/dL (8.8-10.2); CREATININE 2.9 mg/dL (0.7-1.2); POTASSIUM 5.6 mmol/L (3.5-5.1)
[2018-05-11] MEDS ORDERED: NS 500 ML IV ONE ×2 (08:15→08:29)
[2018-05-11] MEDS ORDERED: LOVENOX SUBQ SCH ×2 (08:30→09:00)
[2018-05-11] MEDS: PROTONIX IV SCH ×2 (08:41→21:26)
[2018-05-11] MEDS: PERIDEX MT SCH ×2 (08:41→21:38)
--- NOTE | 2018-05-11 08:58 | Diag Imaging Result Doc PS360 ---
EXAM: CHEST-1 VIEW 05/11/2018 HISTORY: SOB TECHNIQUE: AP portable at 0823 COMMENT: There are extensive pleural plaques bilaterally. There is an endotracheal tube with its tip at the thoracic inlet and an NG tube which passes below the diaphragm. The inspiration is less optimal than on 05/05/2018. Otherwise there has been no appreciable change. IMPRESSION: Stable chest. Electronically signed by Maninder Hinson 05/11/2018 8:55 AM
[2018-05-11] MEDS ORDERED: D50W SYRINGE IV ONE (10:39)
[2018-05-11] MEDS: MORPHINE IV PRN (10:58)
[2018-05-11] MEDS ORDERED: D50W SYRINGE IV PRN (12:58)
--- NOTE | 2018-05-11 14:52 | NEPHROLOGY CONSULTATION ---
DATE: 05/11/2018 REASON FOR ADMISSION: Severe abdominal pain that waxed and waned x1 month date. REASON FOR CONSULT: Acute kidney injury. CONSULTING PHYSICIAN: Dr. Garcia. HISTORY OF PRESENT ILLNESS: Mr. Mederos is a 78-year-old white male who has not been seen by our services in the past. He has an unfortunate history of peripheral vascular disease with recurrent abdominal pain. He had denied any bleeding. No hematochezia or hemoptysis. No hematuria. He does have a history of peptic ulcers versus mesenteric ischemia. The patient was subsequently admitted for further workup and evaluation on the . He had an EGD that was scheduled to be followed by Dr. Bonilla. CT of the abdomen was ordered. It had contrast. CT angiogram also had contrast on 05/06/2018, both p.o. and IV. Unfortunately for the patient on the , he was taken for a critical stenosis of the SMA. Dr. Garcia had been consulted. Dr. Bimal Pizano had also been consulted for upper GI. At that time, it was found that he had a small hiatal hernia, abnormal gastric mucosa, and moderate duodenitis with superficial ulceration. He had a 2nd portion of his duodenum that they had biopsied. The patient then was taken to surgery on the with a left femoral artery access with ultrasound guidance, aortogram, attempted selective mesenteric arteriogram, bipass to SMA bypass was performed. The patient had an anastomosis and was closed. Patient remained on ventilatory support, was transferred to ICU. He has been hypotensive since his surgery yesterday evening. Blood pressure started dropping at approximately 1900. He has barely been above 110 with a low blood pressure this a.m. of 75/51. The patient's labs indicated a white count that is now elevated to 21.97, hemoglobin with repeat from 5.2 corrected to 10.5. BUN of 56 and a creatinine of 2.9 this a.m. The patient did have a previous his plasma lactate on admission of 1.6. His ABGs this morning indicated a lactate of 8.6 on the ventilator. The patient has Levophed ordered. This has not been started. He seems to be resting in the 89 to low 90 range on his systolic blood pressure. He has not had any urine out since recorded this a.m. Otherwise in 24 hours prior to this, he had 1375 to Bhardwaj. He does remain on ventilatory support. PAST MEDICAL HISTORY: Coronary artery disease, diabetes mellitus type 2, hyperlipidemia, hypertension, sleep apnea, asbestosis of the lungs, peripheral vascular disease, left leg claudication status post angioplasty in 2014 PREVIOUS SURGICAL HISTORY: Cholecystectomy, bypass surgery, left femoral angioplasty. He has also had a postoperative mesenteric occlusive disease with post celiac artery to SMA bypass completed yesterday. SOCIAL HISTORY: He is . He has 2 children. He is retired from [employer]. A . Smoked until 1988. Occasional drink with alcohol. Lives in [place]. FAMILY HISTORY: Father at the age of 46 from an MVA. Mother of diabetic complications at 86. ALLERGIES: Listed as no known drug allergies. PATIENT'S HOME MEDICATIONS: Per chart are Flomax, fluoxetine, metformin, aspirin, Zocor, Prinivil, Spiriva, gabapentin, pramipexole, dihydrochloride, glipizide, and Pulmicort Flexhaler. PATIENT'S PRIMARY CARE PHYSICIAN: Dr. Burris. REVIEW OF SYSTEMS: Times 10 unable to obtain per patient. Most obtained from chart. Some obtained per RN and review of the patient's hospitalizations so far per the chart. PATIENT'S LAST VITAL SIGNS: Temperature 97.7 degrees, blood pressure 88/49, heart rate 106, respirations are 24, he is on 40% FiO2, his last recorded saturation is 99%. INTAKE AND OUTPUT: As mentioned, he has had 1375 to Bhardwaj catheter until this a.m. and he has had 0 out since 6 a.m. He has had 2516 in. He has also had a 300 mL EBL from surgery yesterday. PATIENT'S MOST RECENT DIAGNOSTIC STUDIES: Sodium 137, potassium 5.6, chloride 102, CO2 of 10, his BUN is 56, creatinine 2.9, glucose of 118, anion gap of 25, calcium is 8.3. White count 21.97, hemoglobin 10.8, hematocrit 35.2, platelet count is 149,000. The patient has 8 bands, 25 monocytes, 17.39 neutrophils. ABGs: PH 7.34, CO2 of 26, PO2 of 113, bicarbonate 16.9, lactate of 8.6, this was on 60% FiO2 this a.m. Urinalysis yesterday was positive for proteinuria, ketones, bilirubin. Urine electrolytes are currently pending. The patient had a chest x-ray this a.m. showing stable chest from previously noted. He has had extensive pleural plaques bilateral. PHYSICAL EXAMINATION: General: This is a 78-year-old elderly male, resting quietly in bed. He is ventilator dependent with sedation intact. HEENT: Normocephalic, atraumatic. Conjunctiva is pale. Pupils not inspected. Oral ET tube remains in place. Mucous membranes are moist. Neck: Supple. Trachea midline. No evidence of JVD. Cardiovascular: Regular rate and rhythm. No appreciable murmur or gallop. Lungs: Diminished posterior bilateral. He does have coarse inspiratory breath sounds to the upper chest. Ventilatory support equal excursion. Abdomen: Slightly distended. Hypoactive bowel sounds present. No tenderness as detected, though sedated. NG tube remains to low intermittent suction. Genitourinary: Bhardwaj catheter is in place. There is no urine output that has been documented today or in the urometer. We have performed a bladder scan. The nurse indicated there was only 34 mL of urine in the bladder. He does have some dressings to his abdominal area that are dry and intact. No shadow drainage present. Extremities: The patient has diminished pulses palpable. High dorsalis pedis are palpable. These are slightly cool to touch. No edema present, except up into the hip region. Neurological: As mentioned above. ASSESSMENT AND PLAN: 1. Acute kidney injury. Multifactorial ATN. The patient's normal baseline creatinine is 0.7 to 0.9. He has had a CT angiogram of abdomen and pelvis with a CT of the abdomen and pelvis. He has also been hypotensive and recent surgery in the last 24 hours. We will check urine electrolytes. We will have a renal ultrasound to check for any obstruction. The patient is currently on IV fluid resuscitation. They have not put any pressor support on him. The Levophed is ordered for low blood pressure with a MAP less than 60. He does continue on normal saline at 150 mL an hour. Due to his metabolic acidosis, we will add sodium bicarbonate and change the fluids. 2. Electrolytes. He is mildly hyperkalemic. Again, we will add sodium bicarbonate which should assist with his elevated potassium level. 3. Sepsis. Patient is on Keflex. We will change this to renal dosing. 4. Status postoperative day #1 for occlusive disease status post celiac artery to SMA bypass followed by Dr. Garcia and the primary care. I would like to thank you for allowing us to follow with this patient. Dictated by EUFEMIA Gonzalez for Douglas Warren MD Data reviewed, discussed with Porter Justice on 05/11/18. I agree with the above assessment and plan of care. The patient was gone to surgery at the time of my attempted visit. cc: EUFEMIA Gonzalez MD Jagan Reddy, MD [facility] HOSPITALMeri
[2018-05-11] MEDS: LEVOPHED 8 MG in D5 1/2 NS 250 ML IV SCH ×2 (14:53→21:22)
[2018-05-11] MEDS: SODIUM BICARBONATE 8.4% 150 MEQ in D5W 1,000 ML IV SCH ×2 (14:57→23:56)
[2018-05-11] MEDS ORDERED: LANOXIN IV ONE (15:18)
[2018-05-11] MEDS ORDERED: LANOXIN ONE (15:21)
[2018-05-11] MEDS ORDERED: CORDARONE 150 MG/D5W 150 MG/100 ML IV.SOLN IV ONE (15:26)
[2018-05-11 15:36] LABS: ALLEN TEST NO; BE -18.1 mmoll (-3.0-3.0); BLOOD TYPE ARTERIAL; HCO3-(ACT) 10.8 mmoll (20.0-26.0); METHB 0.7 % (0.0-1.5); O2(CT) 12.6 mL/dL (15.0-23.0); O2HB 94.4 % (95.0-99.0); PCO2(98.6) 20 mmHg (35-45); PO2(98.6) 81 mmHg (60-100); SAMPLE BLOOD; SRATE 15 BPM; THB 9.4 g/dL (11.5-17.4); TVOL 800 mL; pH(98.6) 7.21 (7.35-7.45)
[2018-05-11 15:39] LABS: MODALITY VENTILATOR
[2018-05-11] MEDS ORDERED: CORDARONE 360 MG/D5W 360 MG/200 ML IV.SOLN IV ONE (15:40)
--- NOTE | 2018-05-11 15:59 | CARDIOLOGY CONSULTATION ---
DATE: 05/11/2018 HISTORY OF PRESENT ILLNESS: Cardiology was consulted for atrial fibrillation with rapid ventricular rate. Patient is postoperative. Has severe abdominal pain. The patient had surgery for open aortic celiac hepatic artery to SMA bypass on 05/10/2018. Patient is currently intubated. History was obtained from the chart. The patient was hypotensive as well. Started on a Levophed drip. The patient presented with recurrent episodes of abdominal pain and also underwent an upper GI endoscopy two days prior to his surgery. PAST MEDICAL HISTORY: 1. Coronary artery disease status post coronary artery bypass grafting with KIM to left anterior descending artery, saphenous vein graft to PDA. 2. History of myocardial infarction. 3. COPD. 4. Hypertension. 5. Hyperlipidemia. 6. Diabetes. 7. History of cholecystectomy. 8. Left femoral angioplasty. 9. History of asbestosis of the lungs. 10. Peripheral vascular disease. 11. Sleep apnea. HOME MEDICATIONS: Ambien, aspirin, Flomax, fluoxetine, gabapentin, glipizide, lisinopril, metformin, Proventil. REVIEW OF SYSTEMS: Could not be obtained from the patient. PHYSICAL EXAMINATION: Vital Signs: On examination, the patient is intubated. Blood pressure was 80 systolic. Heart rate 150 to 160, irregular. Cardiovascular: First and second heart sounds were heard. There was no S3 gallop. Respiratory System: Distant breath sounds. Abdomen: Post recent surgery. Central nervous System: Could not be assessed. HEENT: Atraumatic. Pupils reacting to light. LABORATORY EXAMINATION: Sodium 136, potassium 5.6, BUN 56, creatinine 2.9. Creatinine on 05/05/2018 was 0.9, and on 05/10/2018 creatinine was 1.3. CBC: WBC 21.95, hemoglobin 10.8, hematocrit 35, platelet count of 149,000. The patient is going to receive 2 units of blood transfusion. ASSESSMENT: Mr. Daniel Mederos is a 78-year-old gentleman with history of peripheral vascular disease, coronary artery disease, coronary artery bypass grafting, hypertension, chronic obstructive pulmonary disease, diabetes who underwent abdominal surgery with aortic celiac to superior mesenteric artery bypass. The patient is hypotensive, went into atrial fibrillation with rapid ventricular rate. He received digoxin. PLAN: 1. He is on Levophed drip. 2. We will start him on an amiodarone drip per standard protocol including bolus. 3. He is on antibiotics, would recommend continuing the same. 4. Once he is more rate controlled, we will plan for an echocardiogram to reassess cardiac and valvular function in the morning. 5. His other medications p.o. have been held. Thank you for the consult. We will follow hospital course. cc: MD Rick Sweeney MD
[2018-05-11 16:07] LABS: BASO# 0.08 X1000 (0.0-0.2); BASO% 0.3 % (0.0-0.8); HEMATOCRIT 30.2 % (42.0-52.0); IMM GRAN# 0.52 X1000 (0.0-0.04); IMM GRAN% 1.9 % (0.0-0.5); LYMPH# 2.43 X1000 (1.2-3.4); LYMPH% 9.1 % (20.5-51.1); MCH 27.4 PG (27-31); MCHC 29.8 g/dL (33-37); MCV 92.1 FL (81-99); MONO# 2.98 X1000 (0.11-0.59); MONO% 11.1 % (1.7-9.3); NEUT# 20.73 X1000 (1.4-6.5); NEUT% 77.6 % (42.2-75.2); PLT 262 X1000 (130-400); RBC 3.28 XMIL (4.7-6.1); WBC 26.74 X1000 (4.8-10.8)
[2018-05-11] MEDS ORDERED: NORCURON ONE ×2 (16:13→18:14)
[2018-05-11] MEDS ORDERED: SODIUM CHLORIDE 0.9% 20 ML ONE (16:13)
[2018-05-11] MEDS ORDERED: FENTANYL ONE (16:14)
[2018-05-11 16:43] LABS: CREATININE 3.5 mg/dL (0.7-1.2); PHOSPHORUS 5.2 mg/dL (2.7-4.5); POTASSIUM 5.3 mmol/L (3.5-5.1)
[2018-05-11] MEDS ORDERED: NS 250 ML ONE (16:51)
[2018-05-11 17:08] LABS: BANDS 32 % (0-1); LYMPHS 5 % (21-51); MONO 5 % (1-9); SEGS 56 % (42-75)
[2018-05-11 17:25] LABS: UR CREAT RANDOM 68.1 mg/dL (14-26); UR SODIUM < 10 mmoll
[2018-05-11] MEDS ORDERED: VERSED ONE ×2 (17:26→19:12)
[2018-05-11] MEDS ORDERED: AK-FLUOR ONE (18:26)
[2018-05-11] MEDS ORDERED: ZOSYN 3.375 GM in NS 50 ML IV ONE (19:00)
--- NOTE | 2018-05-11 20:00 | OPERATIVE NOTE ---
PROCEDURE DATE: 05/11/2018 PROCEDURE PERFORMED: 1. Placement of right femoral vein Trialysis Vas-Cath with ultrasound guidance. 2. Exploratory laparotomy with thrombectomy of aorta to mesenteric graft. 3. Resection of portion of jejunum (78 inches). 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 DESCRIPTION OF PROCEDURE: Satisfactory and general anesthesia was achieved. The anesthesiologist placed a right internal jugular vein central venous line. I placed a right femoral vein Trialysis Vas-Cath under ultrasound guidance. We prepped and draped the right groin. Ultrasound was draped in a sterile fashion. We imaged the vein. We made a stab incision and accessed the right femoral vein without difficulty. We passed a wire. We then dilated the tract sequentially and passed the Trialysis catheter. Blood came back in each lumen spontaneously. We then flushed each lumen with saline and secured the flange to the skin with nylon. Once again cleaned the area of the exit site with more ChloraPrep and then covered it with an OpSite. We then turned our attention to the abdomen. The abdomen was then prepped and draped in a sterile fashion. We removed the rosy. We cut the anterior rectus sheath suture, the posterior rectus sheath suture and entered the abdominal cavity. Upon entering the abdominal cavity, the bowel was noted to be diffusely ischemic. The liver also looked ischemic. I evaluated the aorta mesenteric graft, the graft that went to the hepatic artery and then the one that went down to the branch off the SMA. Both of those grafts were occluded. I then made a transverse graftotomy proximal to the hepatic artery anastomosis in the takeoff of the mesenteric graft. I was able to extract clot from the hepatic artery since I got back bleeding. We then made a graftotomy of the mesenteric branch as well, and we removed clot from that artery as well and got back bleeding from it as well. We passed a dilator through the anastomosis between the grafts, and we were able to pass a 5 dilator satisfactorily. We then passed the 5 Coral into the aorta and extracted clot and then had good aortic flow. We then clamped off the graft while we closed the 2 graftotomies with Prolene stitches. Unfortunately, the bowel did not significantly improve. It may have improved slightly in the ileum. We put warm laps on the bowel and gave it time to improve. We then gave fluorescein and inspected the bowel with a black light fluorescein lamp, and the perfusion was very poor. After further time of allowing this to perfuse, this simply did get very good flow, and I thought the only salvageable portion of course would be the colon and appeared to be supplied by the middle colic. The ileum and right colon may be viable, but the proximal jejunum did not appear viable so I used a CONSUELO in the proximal jejunum just past the ligament of Treitz to divide the bowel there and then chose a spot in the distal jejunum and divided it there also with a CONSUELO. We then divided the mesentery with the LigaSure until we could remove the 78 inches of jejunum. I did not do an anastomosis due to the poor perfusion of the residual bowel. If he improves, then we will consider coming back to make an anastomosis. We then proceeded to close the posterior rectus sheath with a 0 Prolene beginning in both ends and coming toward the middle. We then used #1 PDS for the anterior rectus sheath layer. We closed the skin with rosy. Sterile dressing was applied. He was stable during the procedure. He was sent to the recovery room in serious condition. cc: MD Rick Mendiola MD
[2018-05-11] MEDS ORDERED: NEO-SYNEPHRINE IV PRN (20:01)
--- NOTE | 2018-05-11 20:57 | PROGRESS NOTE ---
DATE: 05/11/2018 LEVEL OF DOCUMENTATION: 35 minutes. SUBJECTIVE: Very critical in the ICU. I appreciate Dr. Garcia's efforts. Interval history was reviewed since last night. The patient remains hypotensive on hemodynamic support, remains intubated. I have seen him twice in the ICU. No family members in the waiting room. The patient continues to deteriorate. REVIEW OF SYSTEMS: Unable to obtain. OBJECTIVE: General: He is hypotensive, tachycardic on the ventilator support, sedated. Chest: Bilateral air entry. Cardiovascular: Heart sounds are tachycardic. Abdomen: Belly is soft bandage seen over abdomen.. Genitourinary: Bhardwaj was placed. INVESTIGATIONS: CBC: White cell count 21, repeat hematocrit 33, platelets 149,000. ABG: pH is 7.34, pCO2 26, pO2 113, elevation of lactate. BUN 44, creatinine 1.3, slowly increasing 56/2.9. ASSESSMENT AND PLAN: 1. Sedation with Diprivan. 2. Mechanical ventilation. Continue present tidal volume FiO2. 3. Hypotensive and metabolic acidosis with lactate, rule out ischemic bowel. Continue to monitor. In the meantime, we will start on 500 bolus followed by Levophed. 4. Atrial fibrillation with hypotension. We will start on digoxin and Cardiology consult for atrial fibrillation on the EKG. 5. Ischemic heart disease. Continue to monitor. 6. Acute kidney injury due to hypovolemic shock. Nephrology consult appreciated by Dr. Warren. The patient continues to be poor in the afternoon, increasing acidosis, hypotensive and tachycardic. Dr. Garcia discussed with me he is going to take him to the operating room and open him up for the dialysis catheter, and patient has ischemic bowel and bypass grafts were occluded. He resected 76 cm of bowel and prognosis is poor. Dr. Garcia did discuss with the son coming at 8:00 in the evening. Prognosis very poor. Waiting for demise. Continue supportive care. cc: Rick Burris MD [facility]
[2018-05-11] MEDS ORDERED: KEFZOL 1 GM in NS 50 ML IV SCH (21:00)
[2018-05-11] MEDS ORDERED: CORDARONE 540 MG in D5W 289.2 ML IV ONE (21:30)
[2018-05-11] MEDS: NEO-SYNEPHRINE 50 MG in NS 250 ML IV SCH (21:37)
--- NOTE | 2018-05-11 23:23 | PROVIDER PROGRESS NOTE ---
Progress Note SUBJECTIVE: Patient hypotensive and anuric overnight. Does awake and move all extremities. Sedated. Nephrology consulted OBJECTIVE Last Vital Signs Temp 97.8 F 05/11/18 16:00 Pulse 180 H 05/11/18 17:10 Resp 25 H 05/11/18 16:16 BP 113/49 05/11/18 16:16 Pulse Ox 97 05/11/18 16:16 Height 6 ft 2 in Weight 265 lb 3.2 oz Examined in AM prior to going back to OR GEN: intubated, sedated HEENT: NGT in place, anicteric CV: tachycardic, regular PULM: vented BS ABD: upper abdominal incision with dressing c/d/i, absent BS, distended EXT: 2-3 LE edema, WWP NEURO: sedated LABS 05/10/18 05/10/18 05/10/18 08:30 08:30 17:33 WBC 27.88 H Hgb 13.2 L Plt Count 393 pH 7.28 L pCO2 36 pO2 98 Sodium 134 L Potassium 4.7 Chloride 95 L Carbon Dioxide 22 L Anion Gap 17 BUN 44 H Creatinine 1.3 H Glucose 216 H PROCEDURE PERFORMED: 05/11/2018 1. Placement of right femoral vein Trialysis Vas-Cath with ultrasound guidance. 2. Exploratory laparotomy with thrombectomy of aorta to mesenteric graft. 3. Resection of portion of jejunum (78 inches). PROCEDURE DATE: 05/10/2018 PROCEDURE PERFORMED: 1. Left femoral artery access with ultrasound guidance. 2. Aortogram. 3. Attempted selective mesenteric arteriogram. 4. Open aorta celiac (hepatic artery) to SMA bypass. A/P: Mr. Daniel Mederos is a 78 year old man admitted with abdominal pain with leukocytosis with severe stenosis of celiac and SMA on CTA s/p EGD on 05/07 showing probable gastric wall hypoperfusion and duodenitis with bleeding ulceration concerning for chronic mesenteric ischemia. Patient underwent aortogram revealing complete occlusion of celiac/SMA requiring open aorta celiac(hepatic artery) to SMA bypass c/b anuric renal failure and graft thrombus and bowel ischemia requiring exlap with thrombectomy of aorta to mesenteric graft and jejunum resection (78 inches). Also, noted to have afib with RVR. #Shock: circulatory +/- septic shock: elevated lactate; on abx; defer to primary #New onset afib: started on digoxin; cardiology consulted #Acute on chronic mesenteric ischemia: surgeries as above; mgmt as per Dr. Garcia, apprec assistance #Leukocytosis: 2/2 to bowel ischemia: on abx per surgery/primary team #Anuric renal failure: likely ATN; nephrology following #Diabetes: NPO; SSI Will follow with you. Please call with questions
[2018-05-11] MEDS ORDERED: SODIUM BICARBONATE 8.4% IV PUSH ONE (23:30)
[2018-05-11] MEDS ORDERED: PITRESSIN 40 UNIT in NS 100 ML IV SCH (23:30)
[2018-05-12] MEDS: PULMICORT FLEXHALER INH SCH (00:02)
[2018-05-12 00:31] VITALS: BP 95/44
[2018-05-12] MEDS: NEO-SYNEPHRINE 50 MG in NS 250 ML IV SCH (01:20)
[2018-05-12] MEDS: LEVOPHED 8 MG in D5 1/2 NS 250 ML IV SCH (01:42)
[2018-05-12] MEDS ORDERED: MORPHINE IV ONE (02:30)
[2018-05-12] MEDS ORDERED: ATIVAN IV ONE (02:30)
[2018-05-12] MEDS ORDERED: ATIVAN IV PRN (02:30)
[2018-05-12] MEDS ORDERED: MORPHINE IV PRN (02:30)
[2018-05-12] MEDS ORDERED: ATIVAN IV SCH (04:00)
--- NOTE | 2018-05-12 08:20 | EKG Report ---
Test Performed on : 05/11/2018 2:10:49 PM Test Reason : HR 170 - 180's Blood Pressure : / mmHG Vent. Rate : 172 BPM Atrial Rate : 141 BPM P-R Int : 000 ms QRS Dur : 086 ms QT Int : 262 ms P-R-T Axes : 000 044 220 degrees QTc Int : 443 ms Atrial fibrillation. with rapid ventricular response. Low voltage QRS ST & T wave abnormality, consider inferior ischemia ST & T wave abnormality, consider anterolateral ischemia Abnormal ECG When compared with ECG of 05-MAY-2018 10:03, (Unconfirmed) Significant changes have occurred Unconfirmed Result
--- NOTE | 2018-05-15 08:15 | DISCHARGE SUMMARY ---
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 SECONDARY DIAGNOSES: 1. Coronary artery disease status post bypass surgery. 2. Rapid atrial fibrillation. 3. Type 2 diabetes. 4. Hyperlipidemia. 5. Hypertension. 6. Sleep apnea. 7. 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 8. Peripheral vascular disease. CONSULTANTS: 1. Dr. Pizano. 2. Dr. Heart/Dr. Garcia. 3. Cardiology consultation with Dr. Yoon. PROCEDURES: 1. Upper endoscopy, esophagogastroduodenoscopy, small hiatal hernia. Mild duodenitis without any ulcers. 2. Attempted selective mesenteric arteriogram. Unable to deploy the stents. 3. Open aorta celiac to superior mesenteric artery bypass by Dr. Garcia and Dr. Torres. 4. Placement of right femoral wean Vas-Cath. 5. Exploration of laparotomy with thrombectomy of aorta to superior mesenteric graft. 6. Resection of the jejunum 78 inches due to ischemic bowel. 7. Ventilator support. 8. Transfusion of 1 unit of packed RBCs. BRIEF HISTORY: Please see the H and P that was done on 05/05/2018. In brief, he was a 78-year- old white male with above problems admitted to the hospital with severe abdominal pain off and on for the last [address] was unremarkable. General Labs normal, except elevated white cell count. He did not have any heme-positive stools. HOSPITAL COURSE: 1. Initial workup was ruled out, ulcer disease ruled out, mesenteric ischemia in light of existing PAD. 2. The patient was seen by Dr. Piazno. Did EGD without any obvious findings and continued IV Protonix. 3. CT abdominal angiogram showed severe mesenteric artery disease. Critical stenosis at the origin of superior mesenteric artery and celiac artery, critical stenosis of pelvic and femoral arteries. Results discussed with the family. Patient is also getting confusion in the middle of the night. He was given Dilaudid, continued on aspirin. Dr. Garcia was consulted and initial plan was to try and put a stent at SMA. Apparently, it was not easily accessible and performed the exploratory laparotomy, did open aorta/SMA artery bypass. The patient was admitted in ICU on ventilator support. 4. The patient was doing well on the first postop day and, on the second following day, he became more hypotensive. He had acute kidney injury with elevated lactic acid and with metabolic acidosis. The patient was seen by Dr. Warren. He also started having rapid atrial fibrillation. Dr. Garcia took him to the operating room and opened up again, and found out the whole bowel was ischemic. The grafts were occluded. Dr. Garcia performed resection of ischemic bowel and sent to the ICU in a critical condition. We discussed with the family. His prognosis was dismal. The family made no code blue level 1. Continue comfort care. The patient peacefully on 05/12/2018 at 3 in the morning. Family was at bedside. The cause of the was due to acute cardiopulmonary arrest due to peripheral vascular disease causing ischemic bowel from severe critical stenosis of mesenteric vessels with comorbid conditions as above. cc: MD Bimal Palma MD Robert C. Walker, MD Ashish K. Basu, MD Jason R. Seale, MD MTDD
== END 2018-05-12 03:07 | disposition expired | DRG 329 ==
LOC: ED 08:47 → OBSVTOIN 14:33 → INTOOBSV 14:33 → 3N 14:33 → ICU 05-10 15:57
PROVIDERS: ADMIT Internal Medicine; ATTEND Internal Medicine
CPT/HCPCS: 36200; 36430; 71010; 71045; 74000; 74018; 74174; 74177; 75625; 80048; 80053; 81001; 82150; 82270; 82570; 82805; 82948; 83605; 83735; 84100; 84156; 84300; 84484; 85014; 85018; 85025; 85027; 86140; 86850; 86900; 86901; 86920; 87275; 87276; 87804; 88304; 88305; 88307; 88312; 93005; 93010; 94002; 94003; 94640; 94761; 96361; 96374; 96375; 99285; A9270; C1725; C1760; C1768; C9113; J0282; J0330; J0690; J1160; J1170; J1644; J1650; J1815; J2060; J2250; J2270; J2370; J2405; J2543; J3010; J7030; J7040; J7050; J7060; J7070; P9016; P9047; Q9967; S0028; S0164; XXXXX